=== PATIENT | female | born 1950 | race Caucasian/White ===

== ENCOUNTER → 2016-11-19 | Outpatient (CLI) | payer MEDICARE, OTHER ==
--- NOTE | 2016-11-20 07:28 | MM ---
Reason for exam: follow-up at short interval from prior study. Last mammogram was performed 1 year ago. History: Patient is postmenopausal, has history of breast cancer at age 61, history of other cancer, and is nulliparous. Family history of breast cancer in paternal cousin and breast cancer in paternal aunt. Radiation therapy of the left breast, 2011. Malignant left breast needle localization of the left breast, April 06, 2011. Malignant left breast needle localization of the left breast, April 06, 2011. Benign US left guided VAD of the left breast, March 15, 2011. Benign US left guided VAD of the left breast, September 06, 2010. Benign right mammotome panel of the right breast, April 10, 2006. 2 benign excisional biopsies of the left breast. Took hormonal contraceptives for 5 years beginning at age 20. Took estrogen for 3 years beginning at age 26. Taking tamoxifen for 3 months. Took antineoplastic for 5 years beginning at age 61. Physical Findings: Nurse did not find any significant physical abnormalities on exam. MG 3D Diag Mammo W/Cad JOSE LUIS Bilateral CC and MLO view(s) were taken. Prior study comparison: November 17, 2015, bilateral MG 3d diag mammo w/cad JOSE LUIS. November 15, 2014, bilateral MG diagnostic mammo w CAD JOSE LUIS. November 12, 2013, bilateral MG diagnostic mammo w CAD JOSE LUIS. There are scattered fibroglandular densities. Finding: Architectural distortion in the left breast consistent with known excisional biopsy. Previous mammotome biopsy in the right breast. There is no discrete abnormality. These results were verbally communicated with the patient and result sheet given to the patient on 11/19/16. ASSESSMENT: Benign, BI-RAD 2 RECOMMENDATION: Follow-up diagnostic mammogram of both breasts in 1 year.
== END | disposition home or self-care (01) ==
LOC: RADMAMWWP 15:18
PROVIDERS: ATTEND Radiology Diagnostic Radiology
DX: C50.912 Malignant neoplasm of unspecified site of left female breast (principal)
CPT/HCPCS: G0204; G0279

== ENCOUNTER → 2016-11-27 | Outpatient (CLI) | payer MEDICARE, OTHER ==
--- NOTE | 2016-11-27 12:10 | PN ---
I am seeing this patient in followup regarding her obstructive sleep apnea. She is a 66-year-old female patient diagnosed having severe TRISH with an AHI of 32 and currently she is on a CPAP pressure of 8 cm of water. Her CPAP pressure was dropped from 9 to 8 during her last evaluation in 2016. She is using a Soto FX small size nasal pillow. She is very compliant. She is still benefiting from the treatment. She has gained only 3 pounds since his last evaluation. Her current body weight is at 186 with a BMI of 30.4 and an Sherburne score of 7. She has no specific complaints. She is averaging more than 7 hours of sleep every night. She is waking up refreshed and alert. Her Sherburne score is at 7. No falling asleep during the day-to-day activities. She has turned off the humidity on her machine and she is using a chinstrap. She is also using Flonase for symptoms of sinus allergies and this needs to be also refilled. Otherwise, no other health issues since her last evaluation. BP is 140/70, pulse 70, respirations 16, temperature 98.0, sats are 97% on room air. Weight is 186, height is 65 inches. Sherburne score of 7 and BMI is 30.4. GENERAL APPEARANCE: Calm, comfortable. HEENT: Crowding of the posterior pharynx, Mallampati class 3 to 4. No goiter or neck masses. LUNGS: Clear to auscultation. HEART: Sounds are regular rate and rhythm. Normal S1, S2. No S3. No S4. No murmurs. ABDOMEN: Soft, nontender. No organomegaly. EXTREMITIES: No edema. No cyanosis or clubbing. IMPRESSION: 1. Symptomatic obstructive sleep apnea with an apnea-hypopnea index of 32, currently on CPAP with a pressure of 8. 2. Successful obstructive sleep apnea treatment and the patient is very compliant utilizing a Soto FX P10 nasal pillow with a chinstrap. 3. Obesity with a body mass index of 30.4. 4. History of breast cancer. 5. Hypertension. 6. Hyperlipidemia. PLAN: 1. Refill the patient's CPAP equipment and supplies, including the mask with a head gear and a chinstrap along with the appropriate filters and tubing. 2. Encourage weight loss. 3. Maintain good sleep hygiene measures. 4. See me back in a year's time in followup; earlier if needed. Her treatment is successful, no need for any CPAP pressure adjustments.
== END ==
LOC: SLEEP 10:42
PROVIDERS: ATTEND Internal Medicine Critical Care Medicine
DX: G47.33 Obstructive sleep apnea (adult) (pediatric) (principal); E66.9 Obesity, unspecified; I10 Essential (primary) hypertension; E78.5 Hyperlipidemia, unspecified; Z68.30 Body mass index [BMI] 30.0-30.9, adult

== ENCOUNTER → 2017-02-08 | Outpatient (CLI) | payer MEDICARE, OTHER ==
[2017-02-08 10:17] LABS: ALT 50 U/L (9-52); AST 32 U/L (14-36); Cholesterol 229 mg/dL (<200); Creatine Kinase 158 U/L (30-135); HDL Cholesterol 45 mg/dL (40-60)
== END | disposition home or self-care (01) ==
LOC: LABWHC1 09:26
PROVIDERS: ATTEND Internal Medicine Interventional Cardiology
DX: E78.2 Mixed hyperlipidemia (principal)
CPT/HCPCS: 36415; 80061; 82550; 84450; 84460

== ENCOUNTER 2017-03-29 08:28 | Day surgery (SDC) | payer MEDICARE, OTHER ==
[2017-03-26 16:36] VITALS: BMI 29.3
[~2017-03-29 08:28] MED LIST: LACTATED RINGERS 1,000 ML IV SCH
[2017-03-29 09:01] VITALS: RESP 16; TEMP 98.5
[2017-03-29] MEDS ORDERED: LIDOCAINE 1% 20 ML VIAL (10MG/ML) FOR IV START INTRADERMA ONE (09:08)
[2017-03-29] MEDS ORDERED: PROPOFOL 10 MG/ML 20 ML VIAL IV ONE (09:54)
[2017-03-29] MEDS ORDERED: ONDANSETRON 4 MG/2 ML VIAL ONE (09:54)
--- NOTE | 2017-03-29 10:23 | P.PCN ---
Date of Procedure: 03/29/17 Procedure(s) Performed: BRIEF HISTORY: Patient is a 67-year-old pleasant to 8 female, scheduled for an elective colonoscopy as a part of evaluation of prior history of colon polyps. PROCEDURE PERFORMED: Colonoscopy. PREOPERATIVE DIAGNOSIS: Colon polyps. IV sedation per Anesthesia. PROCEDURE: After informed consent was obtained, the patient, was brought into the endoscopy unit. IV sedation was administered by Anesthesia under continuous monitoring. Digital rectal examination was normal. Initially the Olympus CF- 160 flexible video colonoscope was then inserted in the rectum, gradually advanced into the sigmoid colon and further advancement was not possible because of acute angulation in this area. The scope was removed and a pediatric colonoscopy was then introduced into the rectum and gradually advanced into the cecum with [id number] difficulty. Careful examination was performed as the scope was gradually being withdrawn. Ileocecal valve and the appendiceal orifice were visualized and appeared normal. Prep was excellent. Mucosa of the cecum, ascending colon, transverse colon, descending colon, sigmoid colon, and rectum appeared normal. Moderate sigmoid diverticulosis seen. Retroflexion was performed in the rectum and small internal hemorrhoids were seen. The patient tolerated the procedure well. IMPRESSION: Normal-appearing colon from rectum to cecum with no evidence of colorectal neoplasia. Moderate left sided diverticulosis and small internal hemorrhoids RECOMMENDATIONS: Findings of this examination were discussed with the patient as well as a family. She was advised to have a repeat screening colonoscopy in 5 years because of the prior history of colon polyps.
[2017-03-29 10:47] VITALS: BP 128/69; PULSE 64
== END 2017-03-29 11:07 | disposition home or self-care (01) ==
LOC: ORWHC2ENDO 08:28
PROVIDERS: ATTEND Internal Medicine Gastroenterology
DX: Z12.11 Encounter for screening for malignant neoplasm of colon (principal); K57.30 Diverticulosis of large intestine without perforation or abscess without bleeding; Z86.010 Personal history of colon polyps; K64.8 Other hemorrhoids; I10 Essential (primary) hypertension; E78.5 Hyperlipidemia, unspecified; G47.33 Obstructive sleep apnea (adult) (pediatric); Z79.899 Other long term (current) drug therapy
CPT/HCPCS: J2405; J2704; G0105; 45378

== ENCOUNTER → 2017-11-18 | Outpatient (CLI) | payer MEDICARE, OTHER ==
--- NOTE | 2017-11-18 10:55 | MM ---
Reason for exam: additional evaluation requested from prior study. Last mammogram was performed 1 year ago. History: Patient is postmenopausal, has history of breast cancer at age 61, history of other cancer, and is nulliparous. Family history of breast cancer in paternal cousin and breast cancer in paternal aunt. Radiation therapy of the left breast, 2011. Malignant left breast needle localization of the left breast, April 06, 2011. Malignant left breast needle localization of the left breast, April 06, 2011. Benign US left guided VAD of the left breast, March 15, 2011. Benign US left guided VAD of the left breast, September 06, 2010. Benign right mammotome panel of the right breast, April 10, 2006. 2 benign excisional biopsies of the left breast. Took hormonal contraceptives for 5 years beginning at age 20. Took estrogen for 3 years beginning at age 26. Took tamoxifen for 3 months. Took antineoplastic for 5 years beginning at age 61. Physical Findings: Nurse did not find any significant physical abnormalities on exam. MG 3D Diag Mammo W/Cad JOSE LUIS Bilateral CC and MLO view(s) were taken. Prior study comparison: November 19, 2016, bilateral MG 3d diag mammo w/cad JOSE LUIS. November 17, 2015, bilateral MG 3d diag mammo w/cad JOSE LUIS. The breast tissue is heterogeneously dense. This may lower the sensitivity of mammography. No suspicious abnormality. Left post operative change. These results were verbally communicated with the patient and result sheet given to the patient on 11/18/17. ASSESSMENT: Benign, BI-RAD 2 RECOMMENDATION: Routine screening mammogram of both breasts in 1 year.
== END | disposition home or self-care (01) ==
LOC: RADMAMWWP 08:53
PROVIDERS: ATTEND Radiology Diagnostic Radiology
DX: C50.912 Malignant neoplasm of unspecified site of left female breast (principal)
CPT/HCPCS: 77066; G0279; 77062

== ENCOUNTER → 2017-12-10 | Outpatient (CLI) | payer MEDICARE, OTHER ==
--- NOTE | 2017-12-10 14:01 | PN ---
PROGRESS NOTE Michaela is coming in for an annual check regarding her severe TRISH with an AHI of 32. She is currently on a CPAP pressure of 8. She is utilizing her CPAP on average of 7 hours and 12 minutes per night and her CPAP use for more than 4 hours is 28/30. She is using a Soto FX small size nasal pillow. No complaints. No interval weight gain. No new onset comorbidities. No sinus congestion, pain or infection. No cough or sputum production. No shortness of breath. No daytime hypersomnia or sleepiness during the day. No other complaints otherwise for now. She is currently retired. She is golfing on a day-to-day basis. She is driving her car. She does not fall asleep while driving. Her [place] score is only at 5. REVIEW OF SYSTEMS: 12-point review of system was done. Positive findings are mentioned in history of present illness. Otherwise negative. Current vital signs: Blood pressure is 127/78, pulse 77, respirations 16, temperature 97.9, saturation 96% on room air. Weight is 189 height is 5 feet 5 inches, Ontario score is 5, BMI 31.3. GENERAL APPEARANCE: Calm, comfortable. Head is atraumatic, normocephalic. NECK: Supple. There is no JVD. No goiter or neck masses. Mallampati class III. LUNGS: Clear to auscultation. HEART: Sounds are regular rate and rhythm. Normal S1, S2. No S3. No murmurs. ABDOMEN: Soft, nontender. No organomegaly. EXTREMITIES: No edema. No cyanosis or clubbing. NEUROLOGIC: AOx3. There is no focal neurological deficits. PSYCHIATRIC: Adequate mood and affect. SKIN: Negative for any wounds or ulceration. IMPRESSION: 1. Severe obstructive sleep apnea with an AHI of 32, well treated with CPAP at a pressure of 8 cm of water. The patient remains compliant and she continues to see adequate clinical response. 2. Hypersomnia recovered. Current Ontario score is 5. 3. Obesity BMI of 31.3. 4. Breast cancer. 5. Hypertension. 6. Hyperlipidemia. PLAN: 1. Continue CPAP at the same level of pressure. 2. Renew the supplies. 3. Encourage weight loss. 4. See me back in a year's time or earlier if needed. MMODL / IJN: [id number] /
== END | disposition home or self-care (01) ==
LOC: SLEEP 09:30
PROVIDERS: ATTEND Internal Medicine Critical Care Medicine
DX: G47.33 Obstructive sleep apnea (adult) (pediatric) (principal); E66.9 Obesity, unspecified; C50.919 Malignant neoplasm of unspecified site of unspecified female breast; I10 Essential (primary) hypertension; E78.5 Hyperlipidemia, unspecified; Z99.89 Dependence on other enabling machines and devices; Z68.31 Body mass index [BMI] 31.0-31.9, adult

== ENCOUNTER → 2018-02-04 | Outpatient (CLI) | payer MEDICARE, OTHER ==
[2018-02-04 10:59] LABS: HCT 41.9 % (34.0-46.0); MCH 30.2 pg (25.0-35.0); MCV 97.5 fL (80.0-100.0); Mean Platelet Volume 6.6; Platelet Count 251 k/uL (150-450); RBC 4.29 m/uL (3.80-5.40); RDW 13.5 % (11.5-15.5); WBC 4.9 k/uL (3.8-10.6)
[2018-02-04 11:09] LABS: Appearance,Urine Clear (Clear); Bilirubin,Urine Negative (Negative); Blood,Urine Negative (Negative); Color,Urine Yellow; Glucose,Urine (UA) Negative (Negative); Ketones,Urine Negative (Negative); Leukocyte Esterase,Urine Negative (Negative); Nitrite,Urine Negative (Negative); Protein,Urine Trace (Negative); Specific Gravity,Urine 1.017 (1.001-1.035); Urobilinogen,Urine <2.0 mg/dL (<2.0)
[2018-02-04 11:14] LABS: Albumin 4.2 g/dL (3.5-5.0); Calcium 9.7 mg/dL (8.4-10.2); Potassium 4.4 mmol/L (3.5-5.1); Total Bilirubin 0.7 mg/dL (0.2-1.3)
== END | disposition home or self-care (01) ==
LOC: LABWHC1 10:16
PROVIDERS: ATTEND Internal Medicine Interventional Cardiology
DX: Z00.00 Encounter for general adult medical examination without abnormal findings (principal); E78.2 Mixed hyperlipidemia
CPT/HCPCS: 36415; 80053; 80061; 81003; 82550; 84443; 85027

== ENCOUNTER → 2018-07-30 | Outpatient (CLI) | payer MEDICARE, OTHER ==
[2018-07-30 10:27] LABS: HCT 39.7 % (34.0-46.0); HGB 13.3 gm/dL (11.4-16.0); MCH 32.6 pg (25.0-35.0); MCHC 33.6 g/dL (31.0-37.0); MCV 97.1 fL (80.0-100.0); Mean Platelet Volume 6.5; Platelet Count 217 k/uL (150-450); RBC 4.09 m/uL (3.80-5.40); RDW 13.4 % (11.5-15.5); WBC 4.8 k/uL (3.8-10.6)
[2018-07-30 16:02] LABS: Albumin 4.5 g/dL (3.80-4.90); Albumin/Globulin Ratio 2.14 (1.60-3.17); Anion Gap 6.6 mmol/L (4.00-12.00); Calcium 9.7 mg/dL (8.7-10.3); Carbon Dioxide 32.4 mmol/L (21.6-31.8); Globulin 2.1 g/dL (1.6-3.3); LDL Cholesterol,Calculated 89.8 mg/dL (0.0-131.0); Total Bilirubin 0.6 mg/dL (0.2-1.2); Total Protein 6.6 g/dL (6.2-8.2); VLDL Calculation 14.2 mg/dL (5.00-40.00)
== END | disposition home or self-care (01) ==
LOC: LABWHC1 09:34
PROVIDERS: ATTEND Internal Medicine Interventional Cardiology
DX: C50.919 Malignant neoplasm of unspecified site of unspecified female breast (principal); I10 Essential (primary) hypertension; E78.2 Mixed hyperlipidemia
CPT/HCPCS: 36415; 80053; 80061; 85027

== ENCOUNTER → 2018-09-01 | Outpatient (CLI) | payer MEDICARE, OTHER ==
--- NOTE | 2018-09-01 12:20 | US ---
EXAMINATION TYPE: US thyroid st tissue head/neck DATE OF EXAM: 09/01/2018 COMPARISON: NONE CLINICAL HISTORY: 68-year-old female Thyroid nodule E04.1. Patient states having a history of breast cancer. Patient states doctor felt nodule. No thyroid medications. TECHNIQUE: Multiple sonographic images of the thyroid gland are obtained. FINDINGS: GLAND SIZE: Right Lobe: 5.8 x 3.3 x 2.6 cm Overall Parenchyma: heterogenous Left Lobe: 5.9 x 3.1 x 2.4 cm Overall Parenchyma: heterogeneous Isthmus Thickness: 1.0 cm NODULES RIGHT: # of nodules measured on right: 3 1. 1.6 X 1.3 x 1.4 cm isoechoic nodule at the Upper mid pole with poorly defined margins. This nod ule is wider than tall and shows intranodular vascularity. Prior size: no previous 2. 0.5 X 0.5 x 0.4 cm Anechoic probable colloid cyst at the lower mid pole with well-defined margins . Prior size: no previous 3. 0.8 X 0.7 x 0.8 cm isoechoic nodule at the upper lateral pole with poorly defined margins. This nodule is taller than wide and shows no intranodular vascularity. Prior size: No previous LEFT: # of nodules measured on left: 1 1. 1.2 X 1.0 x 0.6 cm hypoechoic nodule at the mid medial pole with well-defined margins. This nod ule is wider than tall and shows intranodular vascularity. Prior size: No previous ISTHMUS: # of nodules measured in the isthmus: 1 1. 1.3 X 0.6 x 1.1 cm isoechoic nodule at the right lower pole with well-defined margins. This nod ule is taller than wide and shows intranodular vascularity. Prior size: No previous Bilateral neck scanned, no evidence of lymphadenopathy. Bilateral enlarged thyroid lobes. IMPRESSION: 1. Thyromegaly with multiple nodules. Correlate for multinodular goiter. 2. 1.6 cm solid nodule on the right, 1.2 cm solid nodule on the left, and a 1.3 cm solid nodule in th e isthmus. The decision to biopsy should be made on a clinical basis.
== END | disposition home or self-care (01) ==
LOC: RADUSWWP 10:51
PROVIDERS: ATTEND Internal Medicine
DX: E04.2 Nontoxic multinodular goiter (principal)
CPT/HCPCS: 76536

== ENCOUNTER → 2018-11-21 | Outpatient (CLI) | payer MEDICARE, OTHER ==
--- NOTE | 2018-11-24 08:54 | MM ---
Reason for exam: screening (asymptomatic). Last mammogram was performed 1 year ago. History: Patient is postmenopausal, has history of breast cancer at age 61, history of other cancer, and is nulliparous. Family history of breast cancer in paternal cousin and breast cancer in paternal aunt. Radiation therapy of the left breast, 2011. Malignant left breast needle localization of the left breast, April 06, 2011. Malignant left breast needle localization of the left breast, April 06, 2011. Benign US left guided VAD of the left breast, March 15, 2011. Benign US left guided VAD of the left breast, September 06, 2010. Benign right mammotome panel of the right breast, April 10, 2006. 2 benign excisional biopsies of the left breast. Took hormonal contraceptives for 5 years beginning at age 20. Took estrogen for 3 years beginning at age 26. Took tamoxifen for 3 months. Took antineoplastic for 5 years beginning at age 61. Physical Findings: A clinical breast exam by your physician is recommended on an annual basis and results should be correlated with mammographic findings. MG 3D Screening Mammo W/Cad Bilateral CC and MLO view(s) were taken. Prior study comparison: November 18, 2017, bilateral MG 3d diag mammo w/cad JOSE LUIS. November 19, 2016, bilateral MG 3d diag mammo w/cad JOSE LUIS. The breast tissue is heterogeneously dense. This may lower the sensitivity of mammography. Right biopsy marker noted. Post therapy change on the left. ASSESSMENT: Benign, BI-RAD 2 RECOMMENDATION: Routine screening mammogram of both breasts in 1 year.
== END | disposition home or self-care (01) ==
LOC: RADMAMWWP 09:40
PROVIDERS: ATTEND Radiology Diagnostic Radiology
DX: Z12.31 Encounter for screening mammogram for malignant neoplasm of breast (principal); Z85.3 Personal history of malignant neoplasm of breast
CPT/HCPCS: 77063; 77067

== ENCOUNTER → 2018-11-25 | Outpatient (CLI) | payer MEDICARE, OTHER ==
--- NOTE | 2018-11-25 17:05 | PN ---
PROGRESS NOTE Michaela is 68 with obstructive sleep apnea. She is coming in for a compliancy followup and check. This is her annual check. She has an AHI of 32 with an established case of obstructive sleep apnea back in 2011. She is currently on CPAP pressure of 8. She is using AirFit P10 nose pillows. She is doing extremely well and remains extremely compliant. Nevertheless, her machine has not been functioning properly, and plugging the machine into power will give off pineda. This has become obviously an ongoing issue and even a hazard. For that reason, I suggested that the patient be moved to a newer- generation ResMed unit to continue her ongoing CPAP therapy. She has occasional nasal congestion and sinus drainage. No cough. No sputum production. No chest tightness. No wheezing. No recent weight gain. The patient has managed to lose a few pounds, on the order of 10 pounds, over the past one year. No falling asleep while driving. Jackhorn score is only 3. REVIEW OF SYSTEMS: Fourteen-point review of systems was done. Positive findings are all mentioned above in the history of present illness. No new-onset medical problems or comorbidities. PHYSICAL EXAMINATION: VITAL SIGNS: BP is 128/69, pulse 62, respirations 14, temperature 98.0. Weight is 181. Height is 5 feet 5 inches. Jackhorn score is 7. BMI is 29.6, saturation 97% on room air. GENERAL APPEARANCE: Calm, comfortable. No acute distress. HEAD: Atraumatic, normocephalic. NECK: Supple. There is no JVD. No goiter or neck masses. Mallampati class IV. LUNGS: Clear to auscultation. HEART: Heart sounds are regular rate and rhythm. Normal S1, S2. No S3, S4. No murmurs. ABDOMEN: Soft, nontender. No organomegaly. EXTREMITIES: No edema. No cyanosis or clubbing. SKIN: Negative for any wounds or ulceration. IMPRESSION: 1. Symptomatic obstructive sleep apnea with an apnea/hypopnea index of 32. 2. Malfunctioning CPAP unit. 3. Hypersomnia. 4. Obesity with a body mass index of 29.6, improved; the patient lost approximately 10 pounds. 5. History of breast cancer. 6. Hypertension. 7. Hyperlipidemia. PLAN: Proceed with CPAP therapy at a pressure of 8 cm of water. We will upgrade this patient's CPAP unit; I am going to give her a newer-generation ResMed unit which should be set at a pressure of 8 cm of water. Will give the patient a DreamWear under-the- nose medium-sized nose mask. The patient will see me back in 30 to 90 days for reevaluation regarding her obstructive sleep apnea and treatment and her compliancy on her new machine. Will continue to follow. MMODL / IJN: [id number] /
== END | disposition home or self-care (01) ==
LOC: SLEEP 15:04
PROVIDERS: ATTEND Internal Medicine Critical Care Medicine
DX: G47.33 Obstructive sleep apnea (adult) (pediatric) (principal); R09.81 Nasal congestion; E66.9 Obesity, unspecified; I10 Essential (primary) hypertension; E78.5 Hyperlipidemia, unspecified; Z99.89 Dependence on other enabling machines and devices; Z68.29 Body mass index [BMI] 29.0-29.9, adult; Z85.3 Personal history of malignant neoplasm of breast

== ENCOUNTER → 2019-02-24 | Outpatient (CLI) | payer MEDICARE, OTHER ==
--- NOTE | 2019-02-24 20:01 | PN ---
PROGRESS NOTE Michaela is 68, coming in for a compliancy check regarding her new CPAP machine. The patient has severe TRISH with an AHI of 32, currently on a CPAP pressure of 8. She is very compliant. She is using her machine every night. She is benefitting from the treatment, averaging about 8 hours of CPAP use per night. CPAP use for more than 4 hours is above 95%. AHI is down to 1.3. No recent weight gain. REVIEW OF SYSTEMS: Fourteen-point review of systems was done. Positive findings were all mentioned above in the history of present illness. PHYSICAL EXAMINATION: VITAL SIGNS: BP is 109/64, pulse 68, respirations 16. Weight is 178. Temperature 97.4. GENERAL APPEARANCE: Calm, comfortable. HEAD: Atraumatic, normocephalic. Mallampati class IV. LUNGS: Clear to auscultation. HEART: Heart sounds are regular rate and rhythm. Normal S1, S2. No S3, S4. No murmurs. ABDOMEN: Soft, nontender. No organomegaly. EXTREMITIES: No edema. No cyanosis or clubbing. NEUROLOGIC: Alert and oriented x3. No focal neurological deficits. PSYCHIATRIC: Negative for anxiety or depression. IMPRESSION: Obstructive sleep apnea, severe, with apnea/hypopnea index of 32, currently on CPAP pressure of 8 with excellent clinical response and compliance. PLAN: 1. Continue DreamWear [id number] medium-sized mask. 2. Encourage weight loss. 3. Treatment is successful. The patient is compliant. Will continue the treatment. See me back in a year's time in followup, earlier if needed. MMODL / IJN: [id number] /
== END | disposition home or self-care (01) ==
LOC: SLEEP 15:45
PROVIDERS: ATTEND Internal Medicine Critical Care Medicine
DX: G47.33 Obstructive sleep apnea (adult) (pediatric) (principal); Z99.89 Dependence on other enabling machines and devices

== ENCOUNTER → 2019-06-30 | Outpatient (CLI) | payer MEDICARE, OTHER ==
[2019-06-30 10:17] LABS: HCT 39.5 % (34.0-46.0); HGB 12.8 gm/dL (11.4-16.0); MCH 31.5 pg (25.0-35.0); MCHC 32.4 g/dL (31.0-37.0); Mean Platelet Volume 6.9; Platelet Count 211 k/uL (150-450); RBC 4.07 m/uL (3.80-5.40); RDW 12.9 % (11.5-15.5); WBC 4.9 k/uL (3.8-10.6)
[2019-06-30 10:49] LABS: Appearance,Urine Clear (Clear); Bilirubin,Urine Negative (Negative); Blood,Urine Negative (Negative); Color,Urine Yellow; Glucose,Urine (UA) Negative (Negative); Ketones,Urine Negative (Negative); Leukocyte Esterase,Urine Negative (Negative); Nitrite,Urine Negative (Negative); Protein,Urine Negative (Negative); Urobilinogen,Urine <2.0 mg/dL (<2.0)
[2019-06-30 15:52] LABS: African American GFR (CKD) 59.3 (60.0-200.0); Albumin 4.5 g/dL (3.80-4.90); Albumin/Globulin Ratio 2.37 (1.60-3.17); Anion Gap 6.1 mmol/L (4.00-12.00); BUN/Creat Ratio 18.18 Ratio (12.00-20.00); Calcium 9.4 mg/dL (8.7-10.3); Carbon Dioxide 29.9 mmol/L (21.6-31.8); Chol/HDL Ratio 3.17; Globulin 1.9 g/dL (1.6-3.3); LDL Cholesterol,Calculated 83.8 mg/dL (0.0-131.0); Non-African American GFR(CKD) 51.2 (60.0-200.0); Total Bilirubin 0.6 mg/dL (0.3-1.2); Total Protein 6.4 g/dL (6.2-8.2); VLDL Calculation 18.2 mg/dL (5.00-40.00)
== END | disposition home or self-care (01) ==
LOC: LABWHC1 09:51
PROVIDERS: ATTEND Nurse Practitioner Adult Health
DX: E78.2 Mixed hyperlipidemia (principal); E03.9 Hypothyroidism, unspecified; I10 Essential (primary) hypertension
CPT/HCPCS: 36415; 80053; 80061; 81003; 84443; 85027

== ENCOUNTER → 2020-01-07 | Outpatient (CLI) | payer MEDICARE, OTHER ==
[2020-01-07 09:43] LABS: HCT 38.5 % (34.0-46.0); HGB 12.9 gm/dL (11.4-16.0); MCH 32.9 pg (25.0-35.0); MCHC 33.5 g/dL (31.0-37.0); MCV 98.2 fL (80.0-100.0); Platelet Count 248 k/uL (150-450); RBC 3.92 m/uL (3.80-5.40); RDW 12.9 % (11.5-15.5); WBC 4.9 k/uL (3.8-10.6)
[2020-01-07 10:38] LABS: Appearance,Urine Clear (Clear); Bilirubin,Urine Negative (Negative); Blood,Urine Trace (Negative); Color,Urine Yellow; Glucose,Urine (UA) Negative (Negative); Ketones,Urine Negative (Negative); Leukocyte Esterase,Urine Negative (Negative); Mucus,Urine Rare /hpf; Nitrite,Urine Negative (Negative); PH, Urine 6.5 (5.0-8.0); Protein,Urine Negative (Negative); RBC,Urine 4 /hpf (0-5); Specific Gravity,Urine 1.019 (1.001-1.035); Squamous Epithelial Cell,Urine 2 /hpf (0-4); Urobilinogen,Urine <2.0 mg/dL (<2.0); WBC,Urine 1 /hpf (0-5)
[2020-01-07 17:06] LABS: African American GFR (CKD) 59.3 (60.0-200.0); Albumin 4.4 g/dL (3.80-4.90); Anion Gap 5.1 mmol/L (4.00-12.00); BUN/Creat Ratio 18.18 Ratio (12.00-20.00); Calcium 9.9 mg/dL (8.7-10.3); Carbon Dioxide 31.9 mmol/L (21.6-31.8); Chol/HDL Ratio 3.86; Globulin 2.2 g/dL (1.6-3.3); Non-African American GFR(CKD) 51.2 (60.0-200.0); Potassium 4.3 mmol/L (3.5-5.5); Total Bilirubin 0.7 mg/dL (0.3-1.2); Total Protein 6.6 g/dL (6.2-8.2)
[2020-01-07 20:32] LABS: Hemoglobin A1C 6.1 % (4.0-6.0)
== END | disposition home or self-care (01) ==
LOC: LABWHC1 08:34
PROVIDERS: ATTEND Obstetrics & Gynecology
DX: E78.2 Mixed hyperlipidemia (principal); I10 Essential (primary) hypertension; E03.9 Hypothyroidism, unspecified
CPT/HCPCS: 36415; 80053; 80061; 81001; 83036; 84443; 85027

== ENCOUNTER → 2020-01-14 | Outpatient (CLI) | payer MEDICARE, OTHER ==
--- NOTE | 2020-01-15 10:08 | MM ---
Reason for exam: additional evaluation requested from prior study. Last mammogram was performed 1 year and 2 months ago. History: Patient is postmenopausal, has history of breast cancer at age 61, history of other cancer, and is nulliparous. Family history of breast cancer in paternal cousin and breast cancer in paternal aunt. Radiation therapy of the left breast, 2011. Malignant left breast needle localization of the left breast, April 06, 2011. Malignant left breast needle localization of the left breast, April 06, 2011. Benign US left guided VAD of the left breast, March 15, 2011. Benign US left guided VAD of the left breast, September 06, 2010. Benign right mammotome panel of the right breast, April 10, 2006. 2 benign excisional biopsies of the left breast. Took hormonal contraceptives for 5 years beginning at age 20. Took estrogen for 3 years beginning at age 26. Took tamoxifen for 3 months. Took antineoplastic for 5 years beginning at age 61. Physical Findings: Nurse did not find any significant physical abnormalities on exam. MG 3D Diag Mammo W/Cad JOSE LUIS Bilateral CC and MLO view(s) were taken. Prior study comparison: November 21, 2018, bilateral MG 3d screening mammo w/cad. November 18, 2017, bilateral MG 3d diag mammo w/cad JOSE LUIS. There are scattered fibroglandular densities. No significant new findings when compared with previous films. These results were verbally communicated with the patient and result sheet given to the patient on 01/14/20. ASSESSMENT: Benign, BI-RAD 2 RECOMMENDATION: Follow-up diagnostic mammogram of both breasts in 1 year.
== END | disposition home or self-care (01) ==
LOC: RADMAMWWP 14:20
PROVIDERS: ATTEND Radiology Diagnostic Radiology
DX: R92.8 Other abnormal and inconclusive findings on diagnostic imaging of breast (principal)
CPT/HCPCS: 77066; G0279; 77062

== ENCOUNTER → 2020-03-15 | Outpatient (CLI) | payer MEDICARE, OTHER ==
[2020-03-15 11:09] LABS: Appearance,Urine Clear (Clear); Bilirubin,Urine Negative (Negative); Blood,Urine Trace (Negative); Color,Urine Yellow; Glucose,Urine (UA) Negative (Negative); Ketones,Urine Negative (Negative); Leukocyte Esterase,Urine Negative (Negative); Nitrite,Urine Negative (Negative); Protein,Urine Negative (Negative); RBC,Urine 1 /hpf (0-5); Specific Gravity,Urine 1.011 (1.001-1.035); Urobilinogen,Urine <2.0 mg/dL (<2.0); WBC,Urine 1 /hpf (0-5)
[2020-03-15 21:25] LABS: African American GFR (CKD) 59.3 (60.0-200.0); Albumin 4.5 g/dL (3.80-4.90); Albumin/Globulin Ratio 2.65 (1.60-3.17); Anion Gap 9.2 mmol/L (4.00-12.00); BUN/Creat Ratio 18.18 Ratio (12.00-20.00); Calcium 9.4 mg/dL (8.7-10.3); Carbon Dioxide 27.8 mmol/L (21.6-31.8); Globulin 1.7 g/dL (1.6-3.3); Non-African American GFR(CKD) 51.2 (60.0-200.0); Potassium 4.2 mmol/L (3.5-5.5); Total Bilirubin 0.6 mg/dL (0.2-1.2); Total Protein 6.2 g/dL (6.2-8.2)
[2020-03-15 21:41] LABS: Hemoglobin A1C 6.1 % (4.0-6.0)
== END | disposition home or self-care (01) ==
LOC: LABWHC1 09:42
PROVIDERS: ATTEND Internal Medicine
DX: N18.9 Chronic kidney disease, unspecified (principal); R31.9 Hematuria, unspecified; R73.03 Prediabetes
CPT/HCPCS: 36415; 80053; 81001; 83036

== ENCOUNTER → 2020-03-22 | Outpatient (CLI) | payer MEDICARE, OTHER ==
--- NOTE | 2020-03-22 15:09 | US ---
EXAMINATION TYPE: US thyroid st tissue head/neck DATE OF EXAM: 03/22/2020 COMPARISON: Thyroid US 09/01/2018. 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 GLAND SIZE: Right Lobe: 5.8 x 3.2 x 2.9 cm Overall Parenchyma: heterogenous Left Lobe: 6.6 x 2.4 x 2.5 cm Overall Parenchyma: heterogeneous Isthmus Thickness: 0.8 cm NODULES RIGHT: # of nodules measured on right: 3 1. 1.3 X 1.0 x 1.3 cm isoechoic nodule at the Upper mid pole with poorly defined margins. This nodul e is wider than tall and shows intranodular vascularity. Prior size: no previous 2. 0.5 X 0.5 x 0.6 cm Anechoic probable cyst at the lower mid pole with well-defined margins , Prior size:0.5x 0.5 0.4cm 3. 0.8 X 0.7 x 0.8 cm isoechoic nodule at the upper lateral pole with poorly defined margins. This n odule is taller than wide and shows no intranodular vascularity. Prior size: 0.8 X 0.7 x 0.8 LEFT: # of nodules measured on left: 1 1. 1.2 X 1.0 x 0.6 cm hypoechoic nodule at the mid medial pole with well- defined margins. This nodu le is wider than tall and shows intranodular vascularity. Prior size: No previous ISTHMUS: # of nodules measured in the isthmus: 1 1. 1.6 X 1.0 x 1.6 cm isoechoic nodule at the right lower pole with well- defined margins. This nodu le is taller than wide and shows intranodular vascularity. Prior size: 1.3 X 0.6 x 1.1 cm Bilateral neck scanned, no evidence of lymphadenopathy. Bilateral enlarged thyroid lobes. Markedly heterogeneous enlarged thyroid gland redemonstrated. Some nodules on current study not clear ly seen or marked than prior study. No suspicious nodules to warrant sampling. IMPRESSION: Findings consistent with multinodular goiter as detailed above.
== END | disposition home or self-care (01) ==
LOC: RADUSWWP 14:10
PROVIDERS: ATTEND Internal Medicine
DX: E04.2 Nontoxic multinodular goiter (principal)
CPT/HCPCS: 76536

== ENCOUNTER → 2020-04-21 | Outpatient (CLI) | payer MEDICARE, OTHER ==
--- NOTE | 2020-04-21 15:20 | US ---
EXAMINATION TYPE: US kidneys/renal and bladder DATE OF EXAM: 04/21/2020 COMPARISON: NONE CLINICAL HISTORY: R31.9 Hematuria. microscopic hematuria EXAM MEASUREMENTS: Right Kidney: 10.3 x 4.1 x 4.1 cm Left Kidney: 10.0 x 4.4 x 3.7 cm Right Kidney: fullness to renal pelvis Left Kidney: no evidence of hydronephrosis Bladder: appears wnl Bilateral Jets seen: no *Incidental finding: heterogeneous uterus with calcified area near fundus = 4.1 x 3.4cm Cortical medullary differentiation is maintained bilaterally. IMPRESSION: Probable extrarenal pelvis on the right. Probable calcified fibroid.
== END | disposition home or self-care (01) ==
LOC: RADUSWWP 14:45
PROVIDERS: ATTEND Urology
DX: R31.9 Hematuria, unspecified (principal)
CPT/HCPCS: 76770

== ENCOUNTER → 2020-06-22 | Outpatient (CLI) | payer MEDICARE, OTHER ==
[2020-06-22 16:43] LABS: Albumin 4.8 g/dL (3.80-4.90); Albumin/Globulin Ratio 2.53 (1.60-3.17); Anion Gap 8.2 mmol/L (4.00-12.00); BUN/Creat Ratio 18.33 Ratio (12.00-20.00); Calcium 9.9 mg/dL (8.7-10.3); Carbon Dioxide 29.8 mmol/L (21.6-31.8); Chol/HDL Ratio 3.17; Globulin 1.9 g/dL (1.6-3.3); Non-African American GFR(CKD) 45.8 (60.0-200.0); Potassium 3.9 mmol/L (3.5-5.5); Total Bilirubin 0.7 mg/dL (0.3-1.2); Total Protein 6.7 g/dL (6.2-8.2)
[2020-06-22 16:51] LABS: T4, Free (Free Thyroxine) 1.1 ng/dL (0.80-1.80)
[2020-06-22 17:49] LABS: Hemoglobin A1C 5.8 % (4.0-6.0)
== END | disposition home or self-care (01) ==
LOC: LABWHC1 08:04
PROVIDERS: ATTEND Internal Medicine Interventional Cardiology
DX: E04.2 Nontoxic multinodular goiter (principal); E78.2 Mixed hyperlipidemia; R73.03 Prediabetes
CPT/HCPCS: 36415; 80053; 80061; 83036; 84439; 84443

== ENCOUNTER → 2020-07-14 | Outpatient (CLI) | payer MEDICARE, OTHER ==
[2020-07-14 07:59] LABS: HCT 37.6 % (34.0-46.0); HGB 12.9 gm/dL (11.4-16.0); MCH 32.7 pg (25.0-35.0); MCHC 34.2 g/dL (31.0-37.0); MCV 95.7 fL (80.0-100.0); Mean Platelet Volume 6.7; Platelet Count 222 k/uL (150-450); RBC 3.93 m/uL (3.80-5.40); WBC 5.3 k/uL (3.8-10.6)
[2020-07-14 11:06] LABS: African American GFR (CKD) 58.9 (60.0-200.0); Albumin 4.8 g/dL (3.80-4.90); Anion Gap 5.7 mmol/L (4.00-12.00); Calcium 10.1 mg/dL (8.7-10.3); Carbon Dioxide 32.3 mmol/L (21.6-31.8); Non-African American GFR(CKD) 50.8 (60.0-200.0); Phosphorus 3.6 mg/dL (2.4-5.1); Potassium 3.9 mmol/L (3.5-5.5); Uric Acid 5.7 mg/dL (2.9-7.7)
== END | disposition home or self-care (01) ==
LOC: LABWHC1 07:06
PROVIDERS: ATTEND Internal Medicine Nephrology
DX: I12.9 Hypertensive chronic kidney disease with stage 1 through stage 4 chronic kidney disease, or unspecified chronic kidney disease (principal)
CPT/HCPCS: 36415; 80069; 82550; 84550; 85027

== ENCOUNTER → 2020-08-17 | Outpatient (CLI) | payer MEDICARE, OTHER ==
[2020-08-17 19:42] LABS: HCT 37.7 % (37.2-46.3); HGB 12.1 g/dL (12.0-15.0); MCH 31.6 pg (27.0-32.0); MCHC 32.1 g/dL (32.0-37.0); MCV 98.4 fL (80.0-97.0); Platelet Count 216 X 10*3/uL (140-440); RBC 3.83 X 10*6/uL (4.10-5.20); RDW 13.6 % (11.5-14.5)
[2020-08-18 02:59] LABS: African American GFR (CKD) 66.1 (60.0-200.0); Calcium 9.9 mg/dL (8.7-10.3); Chloride 108 mmol/L (96-109); Creatine Kinase 78 U/L (26-186); Glucose 87 mg/dL (70-110); Potassium 4.1 mmol/L (3.5-5.5); Rheumatoid Factor, Qnt <4 IU/mL (0-13); Sodium 144 mmol/L (135-145)
== END | disposition home or self-care (01) ==
LOC: LABWHC1 10:50
PROVIDERS: ATTEND Internal Medicine Nephrology
DX: I12.9 Hypertensive chronic kidney disease with stage 1 through stage 4 chronic kidney disease, or unspecified chronic kidney disease (principal); N18.9 Chronic kidney disease, unspecified
CPT/HCPCS: 36415; 80069; 82550; 85027; 86431

== ENCOUNTER → 2020-11-24 | Outpatient (CLI) | payer MEDICARE, OTHER ==
[2020-11-24 11:39] LABS: HCT 36.7 % (37.2-46.3); HGB 11.7 g/dL (12.0-15.0); MCH 31.5 pg (27.0-32.0); MCHC 31.9 g/dL (32.0-37.0); MCV 98.7 fL (80.0-97.0); Mean Platelet Volume 9.6 fL (9.5-12.2); Platelet Count 219 X 10*3/uL (140-440); RBC 3.72 X 10*6/uL (4.10-5.20); RDW 13.6 % (11.5-14.5); WBC 4.88 X 10*3/uL (4.50-10.00)
[2020-11-24 14:31] LABS: African American GFR (CKD) 58.9 (60.0-200.0); Albumin 4.4 g/dL (3.80-4.90); Albumin/Globulin Ratio 1.91 (1.60-3.17); Anion Gap 5.9 mmol/L (4.00-12.00); BUN/Creat Ratio 19.09 Ratio (12.00-20.00); Calcium 9.6 mg/dL (8.7-10.3); Carbon Dioxide 29.1 mmol/L (21.6-31.8); Chol/HDL Ratio 3.21; Globulin 2.3 g/dL (1.6-3.3); LDL Cholesterol,Calculated 82.4 mg/dL (0.0-131.0); Non-African American GFR(CKD) 50.8 (60.0-200.0); Potassium 4.1 mmol/L (3.5-5.5); Total Bilirubin 0.5 mg/dL (0.3-1.2); Total Protein 6.7 g/dL (6.2-8.2); VLDL Calculation 12.6 mg/dL (5.00-40.00)
[2020-11-24 16:25] LABS: Hemoglobin A1C 5.7 % (4.0-6.0); Urine Creatinine 66.6 mg/dL
== END | disposition home or self-care (01) ==
LOC: LABWHC1 07:15
PROVIDERS: ATTEND Internal Medicine Nephrology
DX: E78.2 Mixed hyperlipidemia (principal); R73.01 Impaired fasting glucose; R69 Illness, unspecified
CPT/HCPCS: 36415; 80053; 80061; 82043; 82570; 83036; 85027

== ENCOUNTER → 2021-01-16 | Outpatient (CLI) | payer MEDICARE, OTHER ==
--- NOTE | 2021-01-16 11:20 | MM ---
Reason for exam: additional evaluation requested from prior study. Last mammogram was performed 1 year ago. History: Patient is postmenopausal, has history of breast cancer at age 61, history of other cancer, and is nulliparous. Family history of breast cancer in paternal cousin and breast cancer in paternal aunt. Radiation therapy of the left breast, 2011. Malignant left breast needle localization of the left breast, April 06, 2011. Malignant left breast needle localization of the left breast, April 06, 2011. Benign US left guided VAD of the left breast, March 15, 2011. Benign US left guided VAD of the left breast, September 06, 2010. Benign right mammotome panel of the right breast, April 10, 2006. 2 benign excisional biopsies of the left breast. Took hormonal contraceptives for 5 years beginning at age 20. Took estrogen for 3 years beginning at age 26. Took tamoxifen for 3 months. Took antineoplastic for 5 years beginning at age 61. Physical Findings: Nurse did not find any significant physical abnormalities on exam. MG 3D Diag Mammo W/Cad JOSE LUIS Bilateral CC and MLO view(s) were taken. Prior study comparison: January 14, 2020, bilateral MG 3d diag mammo w/cad JOSE LUIS. December 09, 2018, left breast US breast limited LT. November 21, 2018, bilateral MG 3d screening mammo w/cad. November 18, 2017, bilateral MG 3d diag mammo w/cad JOSE LUIS. November 19, 2016, bilateral MG 3d diag mammo w/cad JOSE LUIS. The breast tissue is heterogeneously dense. This may lower the sensitivity of mammography. Stable post surgical and post therapy change left breast with fat necrosis calcifications. No significant new findings when compared with previous films. These results were verbally communicated with the patient and result sheet given to the patient on 01/16/21. ASSESSMENT: Benign, BI-RAD 2 RECOMMENDATION: Follow-up diagnostic mammogram of both breasts in 1 year.
== END | disposition home or self-care (01) ==
LOC: RADMAMWWP 10:15
PROVIDERS: ATTEND Radiology Diagnostic Radiology
DX: R92.2 Inconclusive mammogram (principal); Z78.0 Asymptomatic menopausal state; Z85.3 Personal history of malignant neoplasm of breast; Z80.3 Family history of malignant neoplasm of breast
CPT/HCPCS: 77066; G0279; 77062

== ENCOUNTER → 2021-03-10 | Outpatient (CLI) | payer MEDICARE, OTHER ==
[2021-03-10 15:16] LABS: HCT 39.1 % (37.2-46.3); HGB 12.4 g/dL (12.0-15.0); MCH 31.3 pg (27.0-32.0); MCHC 31.7 g/dL (32.0-37.0); MCV 98.7 fL (80.0-97.0); Mean Platelet Volume 9.9 fL (9.5-12.2); Platelet Count 209 X 10*3/uL (140-440); RBC 3.96 X 10*6/uL (4.10-5.20); RDW 13.9 % (11.5-14.5); WBC 5.25 X 10*3/uL (4.50-10.00)
[2021-03-10 19:37] LABS: % Iron Saturation 25.45 (12.00-45.00); African American GFR (CKD) 58.9 (60.0-200.0); Albumin 4.7 g/dL (3.80-4.90); Anion Gap 6.8 mmol/L (4.00-12.00); BUN/Creat Ratio 16.36 Ratio (12.00-20.00); Carbon Dioxide 29.2 mmol/L (21.6-31.8); Non-African American GFR(CKD) 50.8 (60.0-200.0); Phosphorus 3.8 mg/dL (2.4-5.1); Potassium 4.4 mmol/L (3.5-5.5)
== END | disposition home or self-care (01) ==
LOC: LABWHC1 10:09
PROVIDERS: ATTEND Internal Medicine Endocrinology, Diabetes & Metabolism
DX: I12.9 Hypertensive chronic kidney disease with stage 1 through stage 4 chronic kidney disease, or unspecified chronic kidney disease (principal); N18.30 Chronic kidney disease, stage 3 unspecified; E04.2 Nontoxic multinodular goiter
CPT/HCPCS: 36415; 80069; 82728; 83540; 83550; 84439; 84443; 85027

== ENCOUNTER → 2021-04-07 | Outpatient (CLI) | payer MEDICARE, OTHER ==
--- NOTE | 2021-04-07 13:35 | BD ---
EXAMINATION TYPE: Axial Bone Density DATE OF EXAM: 04/07/2021 COMPARISON: 08/11/2013 CLINICAL HISTORY: Height: 65.0 IN Weight: 159 LBS FRAX RISK QUESTIONS: History of Fracture in Adulthood: LT ANKLE FX AGE 55 RISK FACTORS HISTORY OF: Family History of Osteoporosis: YES MOTHER Active: YES Diet low in dairy products/other sources of calcium: YES Postmenopausal woman: AGE 50 Take estrogen and/or progesterone medications: NOT NOW How long: CONTROL 5 YEARS; CLOMID 1 YEAR MEDICATIONS: Additional Medications: CALCIUM, VIT D, IRBESARTAN, ZETIA, CHOLESTEROL MEDS Additional History: BREAST CANCER WITH RADIATION EXAM MEASUREMENTS: Bone mineral densitometry was performed using the [employer]. Bone mineral density as measured about the Lumbar spine is: ----- L1-L4(G/cm2): 1.168 T Score Values are as follows: ----- L2: -0.9 ----- L3: -0.8 ----- L4: 2.2 ----- L1-L4: -0.1 Bone mineral density has: Decreased -5.8% since study of: 08/11/2013 Bone mineral density about the R hip (g/cm2): 0.882 Bone mineral density about the L hip (g/cm2): 0.895 T Score values are as follows: -----R Neck: -1.1 -----L Neck: -1.0 -----R Total: -0.5 -----L Total: -0.8 Bone mineral density has: Decreased -8.9% since study of: 08/11/2013 IMPRESSION: no evidence for osteoporosis or osteopenia NOTE: T-SCORE=SD OF THE YOUNG ADULT MEAN.
== END | disposition home or self-care (01) ==
LOC: RADBDWWP 08:26
PROVIDERS: ATTEND Internal Medicine
DX: M85.89 Other specified disorders of bone density and structure, multiple sites (principal)
CPT/HCPCS: 77080

== ENCOUNTER → 2021-04-10 | Outpatient (CLI) | payer MEDICARE, OTHER ==
--- NOTE | 2021-04-10 13:17 | US ---
EXAMINATION TYPE: US thyroid st tissue head/neck DATE OF EXAM: 04/10/2021 COMPARISON: 03/22/2020 CLINICAL HISTORY: E04.2 Nontoxic multinodular goiter. GLAND SIZE: Right Lobe: 5.6 x 3.1 x 3.0 cm Overall Parenchyma: heterogenous Left Lobe: 6.3 x 2.9 x 2.9 cm Overall Parenchyma: heterogeneous Isthmus Thickness: 0.9 cm NODULES RIGHT: # of nodules measured on right: 3 1. 0.9 X 1.0 x 1.0 cm, upper lateral, mixed cystic and solid, hypoechoic nodule, which is wider paul n tall, with ill-defined margins, without echogenic foci. 2. 1.8 X 1.5 x 1.6 cm, upper medial, mixed cystic and solid, hypoechoic nodule, which is taller paul n wide, with ill-defined margins, without echogenic foci. Prior size: 1.3 x 1.3 x 0.9 cm 3. 0.6 X 0.6 x 0.5 cm, mid mid, cystic or almost completely cystic, anechoic nodule, which is talle r than wide, with smooth margins, without echogenic foci. Prior size: 0.5 x 0.6 x 0.5 cm LEFT: # of nodules measured on left: 2 1. 0.7 X 0.7 x 0.5 cm, upper medial, mixed cystic and solid, hypoechoic nodule, which is taller paul n wide, with ill-defined margins, without echogenic foci. 2. 2.0 X 1.2 x 0.9 cm, mid mid, solid or almost completely solid, hypoechoic nodule, which is tall er than wide, with ill-defined margins, without echogenic foci. ISTHMUS: # of nodules measured in the isthmus: 1 1. 1.3 X 0.8 x 1.2 cm mixed cystic and solid, hypoechoic nodule, which is taller than wide, with sm ooth margins, without echogenic foci. Prior size: 1.0 x 1.0 x .07 cm Bilateral neck scanned, no evidence of lymphadenopathy. Multiple bilateral nodules seen, largest measured IMPRESSION: Nonspecific thyroid nodularity and heterogeneity.
== END | disposition home or self-care (01) ==
LOC: RADUSWWP 10:10
PROVIDERS: ATTEND Internal Medicine Endocrinology, Diabetes & Metabolism
DX: E04.2 Nontoxic multinodular goiter (principal)
CPT/HCPCS: 76536

== ENCOUNTER → 2021-05-09 | Outpatient (CLI) | payer MEDICARE, OTHER ==
--- NOTE | 2021-05-09 17:51 | PN ---
PROGRESS NOTE Michaela is 71, coming in for a followup regarding obstructive sleep apnea. Doing extremely well. Her interval history is positive for a diagnosis of prediabetes mellitus and the patient subsequently lost around 20 pounds, which improved her blood sugar control. She has chronic stage 3 kidney disease in addition to various comorbidities mentioned earlier such as hyperlipidemia and hypertension. In regard to obstructive sleep apnea, she continues to be on CPAP therapy at a pressure of 8 cm of water. Her baseline AHI is 32. Based on 30-day compliance, she has been averaging around 7.6 hours of CPAP use per night and she has utilized the CPAP machine more than 4 hours 100% of the time. Leak is on order of 24 L/minute and her AHI is down to 1.2. No complaints. No hypersomnia or sleepiness during the day. No other issues otherwise. PHYSICAL EXAMINATION: BP is 120/61, pulse 75, respirations 16, temperature 97.1, saturation 98% on room air. BMI 26.4. Height is 5 feet 5 inches, weight is 159. Alton score is 6. GENERAL APPEARANCE: Calm, comfortable. No acute distress. HEAD: Atraumatic, normocephalic. Neck is supple. No JVD. No goiter or neck masses. LUNGS: Clear to auscultation. Heart sounds are regular rate and rhythm. Normal S1, S2. No S3, S4. No murmurs. ABDOMEN: Soft, nontender. No organomegaly. EXTREMITIES: No edema. No cyanosis or clubbing. IMPRESSION: 1. Symptomatic obstructive sleep apnea, AHI of 32, currently on CPAP pressure of 8. Treatment remains successful. 2. Hypersomnia, recovered. 3. Chronic kidney disease. 4. Prediabetes, currently on no treatment. 5. Hypertension. 6. Hyperlipidemia. 7. Chronic constipation. PLAN: Continue CPAP therapy at the same level of pressures. Refill her supplies. The patient will be given all of her supplies back to her DME. No need for any pressure adjustments. Treatment is stable. Comorbidities are stable. Will continue to follow. MMODL / IJN: [id number] /
== END ==
LOC: SLEEP 15:18
PROVIDERS: ATTEND Internal Medicine Critical Care Medicine
DX: G47.33 Obstructive sleep apnea (adult) (pediatric) (principal); N18.9 Chronic kidney disease, unspecified; R73.03 Prediabetes; K59.00 Constipation, unspecified; E78.5 Hyperlipidemia, unspecified; I10 Essential (primary) hypertension; Z99.89 Dependence on other enabling machines and devices; Z91.040 Latex allergy status

== ENCOUNTER → 2021-09-14 | Outpatient (CLI) | payer MEDICARE, OTHER ==
[2021-09-14 15:29] LABS: African American GFR (CKD) 61.9 (60.0-200.0); Anion Gap 8.8 mmol/L (10.00-18.00); Blood Urea Nitrogen 16.8 mg/dL (9.0-27.0); Calcium 9.7 mg/dL (8.7-10.3); Carbon Dioxide 26.1 mmol/L (20.0-27.5); Non-African American GFR(CKD) 53.4 (60.0-200.0)
== END | disposition home or self-care (01) ==
LOC: LABWHC1 08:43
PROVIDERS: ATTEND Internal Medicine
DX: I10 Essential (primary) hypertension (principal); R73.03 Prediabetes
CPT/HCPCS: 36415; 80048; 83036

== ENCOUNTER 2021-10-20 08:57 | Day surgery (SDC) | payer MEDICARE, OTHER ==
--- NOTE | 2021-10-20 11:01 | US ---
EXAMINATION TYPE: US FNA first lesion, US FNA each additional lesion DATE OF EXAM: 10/20/2021 COMPARISON: NONE HISTORY: Thyroid nodules. Maximal barrier technique was utilized. After informed consent, skin overlying the lower pole left l obe thyroid nodule was localized with ultrasound and the overlying skin prepped and draped. Ultrasoun d was utilized using sterile technique. Lidocaine was used for local anesthesia. Five passes with a 25-gauge needle were made into the nodule and aspirated specimen was submitted to cytology. Using similar technique the upper pole right lobe nodule was subsequently sampled, 5 passes with a 25 -gauge needle under ultrasound guidance and fine-needle aspiration submitted to pathology. Following the procedure hemostasis achieved. No immediate complication. The patient discharged in stable cond ition. IMPRESSION: STATUS POST ULTRASOUND GUIDED FINE NEEDLE ASPIRATION OF THYROID NODULES, PATHOLOGY IS NATALIO DING. THIS PROCEDURE WAS PERFORMED BY THE UNDERSIGNED.
[2021-10-20 15:33] VITALS: BP 142/74; PULSE 68; RESP 18; TEMP 97.8
== END 2021-10-20 10:35 | disposition home or self-care (01) ==
LOC: RADPROMAIN 08:57
PROVIDERS: ATTEND Internal Medicine Endocrinology, Diabetes & Metabolism
DX: E04.2 Nontoxic multinodular goiter (principal)
CPT/HCPCS: 10005; 10006; 88173; 88305

== ENCOUNTER → 2022-01-05 | Outpatient (CLI) | payer MEDICARE, OTHER ==
[2022-01-05 15:12] LABS: ALT 20 U/L (8-44); AST 22 U/L (13-35); African American GFR (CKD) 58.5 (60.0-200.0); Albumin 4.5 g/dL (3.8-4.9); Albumin/Globulin Ratio 1.88 (1.60-3.17); Alkaline Phosphatase 75 U/L (41-126); BUN/Creat Ratio 16.45 Ratio (12.00-20.00); Blood Urea Nitrogen 18.1 mg/dL (9.0-27.0); Calcium 9.6 mg/dL (8.7-10.3); Carbon Dioxide 28.4 mmol/L (20.0-27.5); Chloride 105 mmol/L (96-109); Chol/HDL Ratio 2.89 Ratio; Globulin 2.4 g/dL (1.6-3.3); Glucose 97 mg/dL (70-110); Non-African American GFR(CKD) 50.5 (60.0-200.0); Potassium 4.3 mmol/L (3.5-5.5); Sodium 143 mmol/L (135-145); Total Protein 6.9 g/dL (6.2-8.2); VLDL Calculation 13.38 mg/dL (5.00-40.00)
== END | disposition home or self-care (01) ==
LOC: LABWHC1 09:05
PROVIDERS: ATTEND Internal Medicine Endocrinology, Diabetes & Metabolism
DX: E78.2 Mixed hyperlipidemia (principal); E04.2 Nontoxic multinodular goiter; R73.03 Prediabetes
CPT/HCPCS: 36415; 80053; 80061; 83036; 84439; 84443

== ENCOUNTER → 2022-01-18 | Outpatient (CLI) | payer MEDICARE, OTHER ==
--- NOTE | 2022-01-18 11:18 | MM ---
Reason for Exam: Follow-up at short interval from prior study. Last screening mammogram was performed 12 month(s) ago. Patient History: Menarche at age 12. Patient has no children. Postmenopausal. Breast cancer, age 61. Other cancer. Previous chest radiation therapy. Estrogen for 3 years from age 26 until age 30. Hormonal Contraceptives for 5 years from age 20 until age 25. Tamoxifen for 3 months. Benign Excisional Biopsy on the left side. Benign Excisional Biopsy on the left side. 04/06/2011, Malignant Excisional Biopsy on the left side. 04/06/2011, Malignant Excisional Biopsy on the left side. 03/15/2011, Benign Core Biopsy on the left side. 09/06/2010, Benign Core Biopsy on the left side. 04/10/2006, Benign Core Biopsy on the right side. 2011, Radiation Therapy on the left side. Paternal cousin had breast cancer. Paternal aunt had breast cancer. Tissue Density: The breast tissue is heterogeneously dense. This may lower the sensitivity of mammography. Findings: Analyzed By CAD. Microclip upper outer quadrant right breast from prior biopsy. Postsurgical and posttreatment changes left breast. Unchanged dystrophic calcifications at the excisional scar. No significant change from prior exams. Overall Assessment: Benign, BI-RAD 2 Management: Screening Mammogram of both breasts in 1 year. 1. Patient should continue monthly self breast exams. 2. A clinical breast exam by your physician is recommended on an annual basis. 3. This exam should not preclude additional follow-up of suspicious palpable abnormalities. Results were given to the patient verbally at the time of exam. Electronically signed and approved by: Fiif Cali M.D. Radiologist
== END | disposition home or self-care (01) ==
LOC: RADMAMWWP 10:43
PROVIDERS: ATTEND Radiology Diagnostic Radiology
DX: R92.8 Other abnormal and inconclusive findings on diagnostic imaging of breast (principal); R92.1 Mammographic calcification found on diagnostic imaging of breast; Z85.3 Personal history of malignant neoplasm of breast
CPT/HCPCS: 77066; G0279; 77062

== ENCOUNTER → 2022-04-25 | Outpatient (CLI) | payer MEDICARE, OTHER ==
--- NOTE | 2022-04-25 10:17 | US ---
EXAMINATION TYPE: US abdomen complete DATE OF EXAM: 04/25/2022 COMPARISON: Prior renal ultrasound 2019 CLINICAL HISTORY: R09.89 OTH SYMPTOMS AND SIGNS INVOLVING THE CIRC AORTA. abdominal bruit. TECHNIQUE: Multiple sonographic images of the abdomen are obtained. FINDINGS: EXAM MEASUREMENTS: Liver Length: 13.7 cm Gallbladder Wall: 0.2 cm CBD: 0.2 cm Spleen: 9.6 cm Right Kidney: 9.6 x 3.9 x 4.5 cm Left Kidney: 10.0 x 4.3 x 4.1 cm Aorta prox: 2.1cm Aorta mid: 1.8cm Aorta distal: 1.7cm ANESTHESIOLOGY FACULTY NOTES: Pancreas: Tail obscured by overlying bowel gas Liver: hyperechoic vague area right lobe measuring 2.4 x 2.0 x 1.8cm suspect focal fatty infiltratio n Gallbladder: wnl Evidence for sonographic Arroyo's sign: no CBD: wnl Spleen: wnl Right Kidney: scattered echogenic foci ?stones mild pelvic fullness Left Kidney: wnl Upper IVC: wnl Abd Aorta: wnl, bifurcation obscured by overlying bowel gas The visualized liver slightly heterogeneous. The intrahepatic portion of the IVC and visualized abdo ellen aorta are within normal limits. There is no evidence of cholelithiasis. Common bile duct is u nremarkable. The visualized portions of the pancreas are homogenous. The spleen is unremarkable. K idneys are symmetric and free of hydronephrosis. No renal lesions are seen. IMPRESSION: 1. NO ULTRASOUND EVIDENCE FOR GREATER THAN 3.0 CM AAA. POSSIBLE NONOBSTRUCTING RIGHT RENAL CALCULI AN D MILD RIGHT-SIDED HYDRONEPHROSIS HAS SIMILAR APPEARANCE TO 2020 ULTRASOUND.
== END | disposition home or self-care (01) ==
LOC: RADUSWWP 08:52
PROVIDERS: ATTEND Internal Medicine
DX: N13.2 Hydronephrosis with renal and ureteral calculous obstruction (principal)
CPT/HCPCS: 76700

== ENCOUNTER → 2022-06-04 | Outpatient (CLI) | payer MEDICARE, OTHER ==
--- NOTE | 2022-06-04 17:08 | US ---
EXAMINATION TYPE: US kidneys/renal and bladder DATE OF EXAM: 06/04/2022 COMPARISON: 04/25/2022 CLINICAL HISTORY: N20.0 CALCULUS OF KIDNEY. Short term follow EXAM MEASUREMENTS: Right Kidney: 10.4 x 3.9 x 4.8 cm Left Kidney: 9.3 x 4.8 x 4.3 cm Right Kidney: Slight pelviectasis, improved from prior exam. No discrete echogenic foci with shadowi ng visualized. No contour deforming solid mass. Left Kidney: wnl . No shadowing calculi, hydronephrosis, or contour deforming solid mass. Bladder: wnl Bilateral Jets seen: Left visualized IMPRESSION: Slight pelviectasis of the right kidney which is improved from prior examination. No frnacisco hydronephr osis. No discrete shadowing renal calculi.
== END | disposition home or self-care (01) ==
LOC: RADUSWWP 15:56
PROVIDERS: ATTEND Internal Medicine
DX: N28.89 Other specified disorders of kidney and ureter (principal); N20.0 Calculus of kidney
CPT/HCPCS: 76770

== ENCOUNTER 2022-06-08 09:52 | Day surgery (SDC) | payer MEDICARE, OTHER ==
[~2022-06-08 09:52] MED LIST changes: +LIDOCAINE 1% (10MG/ML) FOR IV START INTRADERMA PRN
[2022-06-08] MEDS ORDERED: ONDANSETRON 4 MG/2 ML VIAL ONE (10:35)
[2022-06-08 10:53] LABS: Glucose,Whole Blood 83 mg/dL (70-110)
[2022-06-08] MEDS ORDERED: ONDANSETRON 4 MG/2 ML VIAL IVP ONE (10:55)
[2022-06-08 10:57] VITALS: RESP 16; TEMP 97.3
[2022-06-08] MEDS ORDERED: LIDOCAINE 2% INJ 20 MG/ML (2 ML VIAL) ONE (11:10)
[2022-06-08] MEDS ORDERED: PROPOFOL 10 MG/ML 20 ML VIAL IV ONE (11:10)
--- NOTE | 2022-06-08 11:36 | P.PCN ---
Date of Procedure: 06/08/22 Procedure(s) Performed: BRIEF HISTORY: Patient is a in 72 to-year-old pleasant white female scheduled for an elective colonoscopy as a part of evaluation of prior history of colon polyps. Last colonoscopy was 5 years ago. PROCEDURE PERFORMED: Colonoscopy. PREOPERATIVE DIAGNOSIS: History of colon polyps. IV sedation per Anesthesia. PROCEDURE: After informed consent was obtained, the patient, was brought into the endoscopy unit. IV sedation was administered by Anesthesia under continuous monitoring. Digital rectal examination was normal. Initially the Olympus CF-160 flexible video colonoscope was then inserted in the rectum, gradually advanced into the cecum without any difficulty. Careful examination was performed as the scope was gradually being withdrawn. Ileocecal valve and the appendiceal orifice were visualized and appeared normal. Prep was excellent. Mucosa of the cecum, ascending colon, transverse colon, descending colon, sigmoid colon, and rectum appeared normal. On a diffuse diverticulosis. Retroflexion was performed in the rectum and all internal hemorrhoids were seen. The patient tolerated the procedure well. IMPRESSION: Normal-appearing colon from rectum to cecum no evidence of colorectal neoplasia. Moderate diffuse diverticulosis. Small internal hemorrhoids RECOMMENDATIONS: Findings of this examination were discussed with the patient as well as her family. She was advised to have a repeat colonoscopy in 5 years because of the prior history of colon polyps.
[2022-06-08 12:03] VITALS: BP 125/66; PULSE 76
== END 2022-06-08 12:34 | disposition home or self-care (01) ==
LOC: ORWHC2ENDO 09:52
PROVIDERS: ATTEND Internal Medicine Gastroenterology
DX: Z12.11 Encounter for screening for malignant neoplasm of colon (principal); K57.30 Diverticulosis of large intestine without perforation or abscess without bleeding; K64.8 Other hemorrhoids; I10 Essential (primary) hypertension; E78.5 Hyperlipidemia, unspecified; G47.33 Obstructive sleep apnea (adult) (pediatric); E07.9 Disorder of thyroid, unspecified; Z86.010 Personal history of colon polyps; Z79.890 Hormone replacement therapy; Z79.82 Long term (current) use of aspirin; Z79.899 Other long term (current) drug therapy; Z91.040 Latex allergy status
CPT/HCPCS: J2405; J2704; J2001; G0105; 45378

== ENCOUNTER → 2022-06-13 | Outpatient (CLI) | payer MEDICARE, OTHER ==
[2022-06-13 15:04] LABS: ALT 22 U/L (8-44); AST 19 U/L (13-35); African American GFR (CKD) 58.1 (60.0-200.0); Albumin 4.5 g/dL (3.8-4.9); Albumin/Globulin Ratio 2.25 (1.60-3.17); Alkaline Phosphatase 72 U/L (41-126); BUN/Creat Ratio 14.55 Ratio (12.00-20.00); Calcium 9.7 mg/dL (8.7-10.3); Carbon Dioxide 26.3 mmol/L (20.0-27.5); Chloride 106 mmol/L (96-109); Chol/HDL Ratio 3.17 Ratio; Glucose 99 mg/dL (70-110); LDL Cholesterol,Calculated 81.2 mg/dL (0.0-131.0); Non-African American GFR(CKD) 50.1 (60.0-200.0); Potassium 3.9 mmol/L (3.5-5.5); Sodium 143 mmol/L (135-145); Total Protein 6.5 g/dL (6.2-8.2); VLDL Calculation 18.72 mg/dL (5.00-40.00)
== END | disposition home or self-care (01) ==
LOC: LABWHC1 09:20
PROVIDERS: ATTEND Internal Medicine Endocrinology, Diabetes & Metabolism
DX: E04.2 Nontoxic multinodular goiter (principal); E78.2 Mixed hyperlipidemia; R73.03 Prediabetes
CPT/HCPCS: 36415; 80053; 80061; 83036; 84439; 84443

== ENCOUNTER → 2023-01-03 | Outpatient (CLI) | payer MEDICARE, OTHER ==
[2023-01-03 13:02] LABS: Creatinine,Urine Random 89.1 mg/dL; Protein/Creatinine Ratio,Urine 0.079
[2023-01-03 16:03] LABS: HCT 40.7 % (37.2-46.3); HGB 12.8 d/dL (12.0-15.0); MCH 31.3 pg (27.0-32.0); MCHC 31.4 d/dL (32.0-37.0); MCV 99.5 FL (80.0-97.0); Mean Platelet Volume 10.3 FL (9.5-12.2); NRBC Per 100 WBC 0 X 10*3/uL (0.00-0.01); Platelet Count 221 X 10*3/uL (140-440); RBC 4.09 X 10*6/uL (4.10-5.20); RDW 14.3 % (11.5-14.5); WBC 4.32 X 10*3/uL (4.50-10.00)
[2023-01-03 16:28] LABS: Chol/HDL Ratio 2.54 Ratio; LDL Cholesterol,Calculated 70.2 mg/dL (0.0-131.0); VLDL Calculation 12.92 mg/dL (5.00-40.00)
[2023-01-03 16:29] LABS: ALT 25 U/L (8-44); AST 25 U/L (13-35); Albumin 4.6 d/dL (3.8-4.9); Albumin/Globulin Ratio 2.09 Ratio (1.60-3.17); Alkaline Phosphatase 73 U/L (41-126); Blood Urea Nitrogen 18.7 mg/dL (9.0-27.0); Calcium 10.1 mg/dL (8.7-10.3); Carbon Dioxide 27.2 mmol/L (21.6-31.8); Chloride 107 mmol/L (96-109); Ferritin 67.4 ng/mL (10.0-291.0); Globulin 2.2 d/dL (1.6-3.3); Glucose 95 mg/dL (70-110); Iron 152 UG/DL (50-170); Potassium 4.4 mmol/L (3.5-5.5); Sodium 144 mmol/L (135-145); Total Bilirubin 0.8 mg/dL (0.3-1.2); Total Iron Binding Capacity 381 UG/DL (228-460); Total Protein 6.8 d/dL (6.2-8.2)
[2023-01-03 16:39] LABS: Appearance,Urine Clear (Clear); Bilirubin,Urine Negative (Negative); Blood,Urine Negative (Negative); Color,Urine Yellow (Yellow); Ketones,Urine Trace (Negative); Nitrite,Urine Negative (Negative); Specific Gravity,Urine 1.014 (1.001-1.030); Urobilinogen,Urine 0.2 E.U./DL
== END | disposition home or self-care (01) ==
LOC: LABWHC1 08:56
PROVIDERS: ATTEND Internal Medicine Interventional Cardiology
DX: I12.9 Hypertensive chronic kidney disease with stage 1 through stage 4 chronic kidney disease, or unspecified chronic kidney disease (principal); N18.9 Chronic kidney disease, unspecified; E78.2 Mixed hyperlipidemia
CPT/HCPCS: 36415; 80053; 80061; 81003; 82570; 82728; 83540; 83550; 84156; 85027

== ENCOUNTER → 2023-01-21 | Outpatient (CLI) | payer MEDICARE, OTHER | END | disposition home or self-care (01) | LOC: RADMAMWWP 10:05 | PROVIDERS: ATTEND Radiology Radiation Oncology | DX: Z53.9 Procedure and treatment not carried out, unspecified reason (principal) ==

== ENCOUNTER → 2023-01-21 | Outpatient (CLI) | payer MEDICARE, OTHER ==
--- NOTE | 2023-01-21 10:57 | MM ---
Reason for Exam: Hx of breast cancer, conservation therapy. Last screening mammogram was performed 12 month(s) ago. Patient History: Menarche at age 12. Patient has no children. Postmenopausal. Breast cancer, left, age 61. Other cancer. Previous chest radiation therapy. Estrogen for 3 years from age 26 until age 30. Hormonal Contraceptives for 5 years from age 20 until age 25. Tamoxifen for 3 months. Benign Excisional Biopsy on the left side. Benign Excisional Biopsy on the left side. 04/06/2011, Malignant Excisional Biopsy on the left side. 04/06/2011, Malignant Excisional Biopsy on the left side. 03/15/2011, Benign Core Biopsy on the left side. 09/06/2010, Benign Core Biopsy on the left side. 04/10/2006, Benign Core Biopsy on the right side. 2011, Radiation Therapy on the left side. Paternal cousin had breast cancer. Paternal aunt had breast cancer. Prior Study Comparison: 11/21/2018 Bilateral Screening Mammogram, [facility]. 12/09/2018 Left Diagnostic Ultrasound, [facility]. 01/14/2020 Bilateral Diagnostic Mammogram, [facility]. 01/16/2021 Bilateral Diagnostic Mammogram, [facility]. 01/18/2022 Bilateral MG 3D diag mammo w/cad JOSE LUIS, [facility]. Tissue Density: There are scattered fibroglandular densities. Findings: Analyzed By CAD. Postprocedural changes left breast. Biopsy clip right breast. No new suspicious masses, calcifications or distortions. Overall Assessment: Benign, BI-RAD 2 Management: Screening Mammogram of both breasts in 1 year. Results were given to the patient verbally at the time of exam. Patient should continue monthly self-breast exams. A clinical breast exam by your physician is recommended on an annual basis. This exam should not preclude additional follow-up of suspicious palpable abnormalities. Note on Genet scores and lifetime risk: 1. A Genet score greater than 3% is considered moderate risk. If this is the case, consider specialist referral to assess eligibility for a risk reducing agent. 2. If overall lifetime risk for the development of breast cancer is 20% or higher, the patient may qualify for future screening with alternating mammogram and breast MRI. Electronically signed and approved by: Ryland Marie DO
--- NOTE | 2023-01-21 12:30 | US ---
EXAMINATION TYPE: US thyroid st tissue head/neck DATE OF EXAM: 01/21/2023 COMPARISON: 04/10/2021 10/20/2021 CLINICAL INDICATION: Female, 72 years old with history of Z85.3 PERSONAL HISTORY OF MALIGNANT NEOPLAS M OF BR; Thyroid nodules GLAND SIZE: Right Lobe: 5.9 x 3.3 x 2.8 cm Overall Parenchyma: heterogenous Left Lobe: 7.5 x 3.1 x 2.7 cm Overall Parenchyma: heterogenous Isthmus Thickness: 0.6 cm NODULES RIGHT: # of nodules measured on right: subcentimeter previous not well visualized on today's study. LEFT: # of nodules measured on left: 1 1. 2.0 X 1.4 x 1.6 cm, Prior size: 2.0 x 0.9 x 1.2 cm TIRADS Score: 4 TIRADS Category 4: Moderately Suspicious Composition: Solid or almost completely solid (2 points). Echogenicity: Hypoechoic (2 points). Shape: Wider than tall (0 points). Margin: Smooth (0 points). Echogenic foci: None or large comet-tail artifacts (0 points) Recommendation: If >1.5cm: FNA; If >1cm: Follow up at 1,2, 3,5 years ISTHMUS: # of nodules measured in the isthmus: 1 1. 1.4 X 0.8 x 1.1 cm Prior size: 1.3 x 0.8 x 1.2 cm TIRADS Score: 4 TIRADS Category 4: Moderately Suspicious Composition: Solid or almost completely solid (2 points). Echogenicity: Hypoechoic (2 points). Shape: Wider than tall (0 points). Margin: Smooth (0 points). Echogenic foci: None or large comet-tail artifacts (0 points) Recommendation: If >1.5cm: FNA; If >1cm: Follow up at 1,2, 3,5 years Bilateral neck scanned, no evidence of lymphadenopathy. IMPRESSION: Stable thyroid nodules, on the left was biopsied 10/20/2021.
== END | disposition home or self-care (01) ==
LOC: RADUSWWP 10:07
PROVIDERS: ATTEND Internal Medicine Endocrinology, Diabetes & Metabolism
DX: R92.8 Other abnormal and inconclusive findings on diagnostic imaging of breast (principal); E04.2 Nontoxic multinodular goiter; Z80.3 Family history of malignant neoplasm of breast; Z78.0 Asymptomatic menopausal state
CPT/HCPCS: 77066; 76536; G0279; 77062

== ENCOUNTER → 2023-02-25 | Outpatient (CLI) | payer MEDICARE, OTHER ==
[2023-02-25 10:57] LABS: Basophils # (A) 0.06 X 10*3/uL (0.00-0.10); Basophils % (A) 1.3 %; Eosinophils % (A) 4.3 %; HGB 12.4 d/dL (12.0-15.0); Lymphocytes # (A) 1.28 X 10*3/uL (0.90-5.00); Lymphocytes % (A) 27.5 %; MCHC 31.8 d/dL (32.0-37.0); MCV 100.8 FL (80.0-97.0); Mean Platelet Volume 9.9 FL (9.5-12.2); Monocytes # (A) 0.55 X 10*3/uL (0.20-1.00); Monocytes % (A) 11.8 %; NRBC Per 100 WBC 0 X 10*3/uL (0.00-0.01); Neutrophils # (A) 2.55 X 10*3/uL (1.80-7.70); Neutrophils % (A) 54.9 %; Platelet Count 194 X 10*3/uL (140-440); RBC 3.87 X 10*6/uL (4.10-5.20); RDW 13.6 % (11.5-14.5); WBC 4.65 X 10*3/uL (4.50-10.00)
[2023-02-25 11:17] LABS: ALT 20 U/L (8-44); AST 24 U/L (13-35); Albumin 4.4 d/dL (3.8-4.9); Albumin/Globulin Ratio 2.44 Ratio (1.60-3.17); Alkaline Phosphatase 81 U/L (41-126); BUN/Creat Ratio 15.67 Ratio (12.00-20.00); Blood Urea Nitrogen 18.8 mg/dL (9.0-27.0); Calcium 9.6 mg/dL (8.7-10.3); Carbon Dioxide 27.3 mmol/L (21.6-31.8); Chloride 106 mmol/L (96-109); Chol/HDL Ratio 2.55 Ratio; Globulin 1.8 d/dL (1.6-3.3); Glucose 92 mg/dL (70-110); LDL Cholesterol,Calculated 69.5 mg/dL (0.0-131.0); Magnesium 2.4 mg/dL (1.5-2.4); Potassium 4.1 mmol/L (3.5-5.5); Sodium 144 mmol/L (135-145); T4, Free (Free Thyroxine) 1.31 ng/dL (0.80-1.80); Total Bilirubin 0.7 mg/dL (0.3-1.2); Total Protein 6.2 d/dL (6.2-8.2); Uric Acid 4.7 mg/dL (2.9-7.7); VLDL Calculation 8.94 mg/dL (5.00-40.00)
[2023-02-25 16:05] LABS: Appearance,Urine Clear (Clear); Bilirubin,Urine Negative (Negative); Blood,Urine Negative (Negative); Color,Urine Yellow (Yellow); Ketones,Urine Negative (Negative); Nitrite,Urine Negative (Negative); Specific Gravity,Urine 1.015 (1.001-1.030)
== END | disposition home or self-care (01) ==
LOC: LABWHC1 07:53
PROVIDERS: ATTEND Internal Medicine
DX: I12.9 Hypertensive chronic kidney disease with stage 1 through stage 4 chronic kidney disease, or unspecified chronic kidney disease (principal); N18.31 Chronic kidney disease, stage 3a; E78.2 Mixed hyperlipidemia; E04.2 Nontoxic multinodular goiter; R73.03 Prediabetes
CPT/HCPCS: 36415; 80053; 80061; 81003; 83036; 83735; 83970; 84439; 84443; 84550; 85025

== ENCOUNTER → 2023-05-06 | Outpatient (CLI) | payer MEDICARE, OTHER ==
--- NOTE | 2023-05-06 12:05 | BD ---
EXAMINATION TYPE: Axial Bone Density DATE OF EXAM: 05/06/2023 CLINICAL HISTORY: 73 years old Female. ICD-10 CODE: M85.851 OTH DISRD OF BONE DENSITY AND STRUCTURE, R Height: 64.1 Weight: 160 FRAX RISK QUESTIONS: Family History (Parent hip fracture): yes History of Fracture in Adulthood: yes RISK FACTORS HISTORY OF: hx of lt ankle fx at 55 yrs old Surgery to Spine laminotomy disc surg Family History of Osteoporosis: yes, mother Postmenopausal woman: at 50 Lost more than 2 inches in height since high school: yes Hyperparathyroidism: no Adrenal Insufficiency: no MEDICATIONS: Additional Medications: calcium and vit d, irbesartan, zetia, cholesterol meds, hx of radiation, bp m eds, Additional History: hx of breast cancer with radiation, cholesterol meds, hypertension, pre diabetic, EXAM MEASUREMENTS: Bone mineral densitometry was performed using the [employer]. Bone mineral density as measured about the Lumbar spine is: ----- L1-L4(G/cm2): 1.142 T Score Values are as follows: ----- L1: -1.5 ----- L2: -1.1 ----- L3: -0.9 ----- L4: 1.9 ----- L1-L4: -0.3 Z Score Values are as follows: ----- L1: 0.0 ----- L2: 0.4 ----- L3: 0.5 ----- L4: 3.3 ----- L1-L4: 1.1 Bone mineral density has: Decreased -2.2% since study of: 04.07.2021 Bone mineral density about the R hip (g/cm2): 0.925 Bone mineral density about the L hip (g/cm2): 0.874 T Score values are as follows: -----R Neck: -1.1 -----L Neck: -1.3 -----R Total: -0.6 -----L Total: -1.1 Z Score values are as follows: -----R Neck: 0.6 -----L Neck: 0.4 -----R Total: 0.8 -----L Total: 0.4 Bone mineral density has: Decreased -2.3% since study of: 04.07.2021 FRAX%s: The graph provided illustrates a 23.4% chance for a major osteoporotic fx and a 7.4% chance for the hips probability for fx in 10 years time. IMPRESSION: Normal (Values between +1 and -1 indicate normal bone mass). Consider repeating this study in 5 year s or sooner if there is some new clinical indication. NOTE: T-SCORE=SD OF THE YOUNG ADULT MEAN.
== END | disposition home or self-care (01) ==
LOC: RADBDWWP 07:49
PROVIDERS: ATTEND Internal Medicine
DX: M85.89 Other specified disorders of bone density and structure, multiple sites (principal); Z78.0 Asymptomatic menopausal state
CPT/HCPCS: 77080

== ENCOUNTER → 2023-06-20 | Outpatient (CLI) | payer MEDICARE, OTHER ==
[2023-06-20 10:47] LABS: Creatinine,Urine Random 66.3 mg/dL; Protein/Creatinine Ratio,Urine 0.106
[2023-06-20 11:11] LABS: HCT 38.3 % (37.2-46.3); HGB 12.2 g/dL (12.0-15.0); MCH 31.4 pg (27.0-32.0); MCHC 31.9 g/dL (32.0-37.0); MCV 98.5 FL (80.0-97.0); Mean Platelet Volume 10.1 FL (9.5-12.2); NRBC Per 100 WBC 0 X 10*3/uL (0.00-0.01); Platelet Count 209 X 10*3/uL (140-440); RBC 3.89 X 10*6/uL (4.10-5.20); RDW 13.9 % (11.5-14.5); WBC 5.39 X 10*3/uL (4.50-10.00)
[2023-06-20 11:36] LABS: BUN/Creat Ratio 17.83 Ratio (12.00-20.00); Blood Urea Nitrogen 21.4 mg/dL (9.0-27.0); Carbon Dioxide 28.1 mmol/L (21.6-31.8); Chloride 106 mmol/L (96-109); Chol/HDL Ratio 2.69 Ratio; Glucose 94 mg/dL (70-110); LDL Cholesterol,Calculated 71.9 mg/dL (0.0-131.0); Magnesium 2.3 mg/dL (1.5-2.4); Phosphorus 3.5 mg/dL (2.4-5.1); Sodium 143 mmol/L (135-145); VLDL Calculation 13.04 mg/dL (5.00-40.00)
[2023-06-20 11:37] LABS: ALT 21 U/L (8-44); AST 21 U/L (13-35); Albumin 4.3 g/dL (3.8-4.9); Albumin/Globulin Ratio 2.15 Ratio (1.60-3.17); Alkaline Phosphatase 71 U/L (41-126); Calcium 9.7 mg/dL (8.7-10.3); Total Bilirubin 0.6 mg/dL (0.3-1.2); Total Protein 6.3 g/dL (6.2-8.2)
[2023-06-20 16:26] LABS: Appearance,Urine Clear (Clear); Bilirubin,Urine Negative (Negative); Blood,Urine Negative (Negative); Color,Urine Yellow (Yellow); Ketones,Urine Negative (Negative); Nitrite,Urine Negative (Negative); Specific Gravity,Urine 1.013 (1.001-1.030); Urobilinogen,Urine 0.2 E.U./DL
[2023-06-20 19:36] LABS: Microalbumin Creatinine Ratio <19 mg/g Cr (0-30); Urine Creatinine 63.3 mg/dL (28.0-217.0)
== END | disposition home or self-care (01) ==
LOC: LABWHC1 07:55
PROVIDERS: ATTEND Internal Medicine Interventional Cardiology
DX: E78.2 Mixed hyperlipidemia (principal)
CPT/HCPCS: 36415; 80053; 80061; 81003; 82043; 82570; 83036; 83735; 84100; 84156; 85027

== ENCOUNTER → 2023-10-15 | Outpatient (CLI) | payer MEDICARE, OTHER ==
[2023-10-15 14:50] LABS: Basophils # (A) 0.04 X 10*3/uL (0.00-0.10); Basophils % (A) 0.8 %; Eosinophils # (A) 0.14 X 10*3/uL (0.04-0.35); Eosinophils % (A) 2.9 %; HCT 40.2 % (37.2-46.3); HGB 12.8 g/dL (12.0-15.0); Immature Grans, Automated 0 %; Lymphocytes % (A) 24.6 %; MCHC 31.8 g/dL (32.0-37.0); MCV 100.5 FL (80.0-97.0); Mean Platelet Volume 9.9 FL (9.5-12.2); Monocytes # (A) 0.54 X 10*3/uL (0.20-1.00); Monocytes % (A) 11.1 %; NRBC Per 100 WBC 0 X 10*3/uL (0.00-0.01); Neutrophils # (A) 2.95 X 10*3/uL (1.80-7.70); Neutrophils % (A) 60.6 %; Platelet Count 227 X 10*3/uL (140-440); RDW 13.6 % (11.5-14.5); WBC 4.87 X 10*3/uL (4.50-10.00)
[2023-10-15 16:22] LABS: ALT 19 U/L (8-44); AST 23 U/L (13-35); Albumin 4.6 g/dL (3.8-4.9); Alkaline Phosphatase 89 U/L (41-126); BUN/Creat Ratio 14.55 Ratio (12.00-20.00); Calcium 9.6 mg/dL (8.7-10.3); Carbon Dioxide 27.6 mmol/L (21.6-31.8); Chloride 107 mmol/L (96-109); Chol/HDL Ratio 2.62 Ratio; Globulin 2.3 g/dL (1.6-3.3); Glucose 96 mg/dL (70-110); LDL Cholesterol,Calculated 75.4 mg/dL (0.0-131.0); Sodium 145 mmol/L (135-145); Total Bilirubin 0.5 mg/dL (0.3-1.2); Total Protein 6.9 g/dL (6.2-8.2); VLDL Calculation 12.96 mg/dL (5.00-40.00)
[2023-10-15 18:54] LABS: Microalbumin Creatinine Ratio <12 mg/g Cr (0-30)
== END | disposition home or self-care (01) ==
LOC: LABWHC1 08:05
PROVIDERS: ATTEND Internal Medicine
DX: Z00.00 Encounter for general adult medical examination without abnormal findings (principal); I12.9 Hypertensive chronic kidney disease with stage 1 through stage 4 chronic kidney disease, or unspecified chronic kidney disease; N18.31 Chronic kidney disease, stage 3a; E78.2 Mixed hyperlipidemia; E55.9 Vitamin D deficiency, unspecified; R73.03 Prediabetes
CPT/HCPCS: 36415; 80053; 80061; 82043; 82306; 82570; 83036; 84443; 85025

== ENCOUNTER → 2023-11-15 | Outpatient (CLI) | payer MEDICARE, OTHER ==
--- NOTE | 2023-11-17 17:50 | US ---
EXAMINATION TYPE: US thyroid st tissue head/neck DATE OF EXAM: 11/15/2023 COMPARISON: Multiple 01/21/2023 CLINICAL INDICATION: Female, 73 years old with history of E04.2 NONTOXIC MULTINODULAR GOITER; Patient denies any changes from prior GLAND SIZE: Right Lobe: 6.8 x 3.3 x 3.4 cm Overall Parenchyma: heterogeneous Left Lobe: 6.6 x 3.0 x 2.3 cm Overall Parenchyma: heterogeneous Isthmus Thickness: 0.6 cm NODULES RIGHT: # of nodules measured on right: 1 1. 1.0 X 0.8 x 1.0 cm, lower mid, spongiform, isoechoic nodule, which is wider than tall, with lobu lated or irregular margins, with echogenic foci. Prior size: on prior not measured LEFT: # of nodules measured on left: 2 1. 1.6 X 1.2 x 1.2 cm, lower mid, solid or almost completely solid, isoechoic nodule, which is wide r than tall, with ill-defined margins, without echogenic foci. Prior size: 2.0 x 1.4 x 1.6 cm 2. 1.3 X 0.8 x 1.2 cm, upper medial, spongiform, isoechoic nodule, which is wider than tall, with ill-defined margins, without echogenic foci. TR 1. Prior size: ? no prior ISTHMUS: # of nodules measured in the isthmus: 1 1. 1.1 X 0.8 x 1.2 cm spongiform, isoechoic nodule, which is wider than tall, with smooth margins, with echogenic foci. Prior size: 1.4 x 0.8 x 1.1 cm Bilateral neck scanned, no evidence of lymphadenopathy. IMPRESSION: Redemonstration of enlarged multinodular thyroid gland with a new left thyroid lobe 1.3 cm TR 1 nodul e. Remaining nodules are stable to marginally smaller in size from prior exam.
== END | disposition home or self-care (01) ==
LOC: RADUSWWP 11-12 09:32
PROVIDERS: ATTEND Internal Medicine Endocrinology, Diabetes & Metabolism
DX: E04.2 Nontoxic multinodular goiter (principal)
CPT/HCPCS: 76536

== ENCOUNTER → 2023-11-15 | Outpatient (CLI) | payer MEDICARE, OTHER ==
[2023-11-15 16:10] LABS: T4, Free (Free Thyroxine) 1.32 ng/dL (0.80-1.80)
== END | disposition home or self-care (01) ==
LOC: LABWHC1 09:37
PROVIDERS: ATTEND Internal Medicine Endocrinology, Diabetes & Metabolism
DX: E04.2 Nontoxic multinodular goiter (principal); R73.03 Prediabetes
CPT/HCPCS: 36415; 83036; 84439; 84443

== ENCOUNTER → 2023-12-24 | Outpatient (CLI) | payer MEDICARE, OTHER ==
[2023-12-24 10:35] LABS: Basophils # (A) 0.05 X 10*3/uL (0.00-0.10); Basophils % (A) 0.9 %; Eosinophils # (A) 0.17 X 10*3/uL (0.04-0.35); Eosinophils % (A) 3.1 %; HCT 42.9 % (37.2-46.3); HGB 13.6 g/dL (12.0-15.0); Lymphocytes # (A) 1.45 X 10*3/uL (0.90-5.00); Lymphocytes % (A) 26.8 %; MCH 31.7 pg (27.0-32.0); MCHC 31.7 g/dL (32.0-37.0); Mean Platelet Volume 9.9 FL (9.5-12.2); Monocytes # (A) 0.62 X 10*3/uL (0.20-1.00); Monocytes % (A) 11.5 %; NRBC Per 100 WBC 0 X 10*3/uL (0.00-0.01); Neutrophils # (A) 3.11 X 10*3/uL (1.80-7.70); Neutrophils % (A) 57.5 %; Platelet Count 219 X 10*3/uL (140-440); RBC 4.29 X 10*6/uL (4.10-5.20); RDW 13.7 % (11.5-14.5); WBC 5.41 X 10*3/uL (4.50-10.00)
[2023-12-24 11:11] LABS: % Iron Saturation 37.24 (12.00-45.00); ALT 23 U/L (8-44); AST 23 U/L (13-35); Albumin 4.8 g/dL (3.8-4.9); Albumin/Globulin Ratio 2.18 Ratio (1.60-3.17); Alkaline Phosphatase 81 U/L (41-126); BUN/Creat Ratio 14.92 Ratio (12.00-20.00); Blood Urea Nitrogen 17.9 mg/dL (9.0-27.0); Carbon Dioxide 29.6 mmol/L (21.6-31.8); Chloride 106 mmol/L (96-109); Chol/HDL Ratio 2.77 Ratio; Ferritin 52.5 ng/mL (10.0-291.0); Globulin 2.2 g/dL (1.6-3.3); Glucose 101 mg/dL (70-110); Iron 143 UG/DL (50-170); LDL Cholesterol,Calculated 84.9 mg/dL (0.0-131.0); Magnesium 2.4 mg/dL (1.5-2.4); Phosphorus 3.7 mg/dL (2.4-5.1); Potassium 4.2 mmol/L (3.5-5.5); Sodium 145 mmol/L (135-145); Total Bilirubin 0.6 mg/dL (0.3-1.2); Total Iron Binding Capacity 384 UG/DL (228-460); Uric Acid 4.7 mg/dL (2.9-7.7)
[2023-12-24 11:31] LABS: Appearance,Urine Clear (Clear); Bilirubin,Urine Negative (Negative); Blood,Urine Negative (Negative); Color,Urine Yellow (Yellow); Ketones,Urine Negative (Negative); Nitrite,Urine Negative (Negative); Specific Gravity,Urine 1.019 (1.001-1.030); Urobilinogen,Urine 0.2 E.U./DL
[2023-12-24 11:36] LABS: Microalbumin Creatinine Ratio <13 mg/g Cr (0-30); Urine Creatinine 94.8 mg/dL (28.0-217.0)
[2023-12-24 11:46] LABS: Bacteria,Urine None Seen (None Seen)
== END | disposition home or self-care (01) ==
LOC: LABWHC1 07:41
PROVIDERS: ATTEND Internal Medicine Interventional Cardiology
DX: I12.9 Hypertensive chronic kidney disease with stage 1 through stage 4 chronic kidney disease, or unspecified chronic kidney disease (principal); E78.2 Mixed hyperlipidemia; E55.9 Vitamin D deficiency, unspecified; N25.81 Secondary hyperparathyroidism of renal origin; M10.9 Gout, unspecified; N39.0 Urinary tract infection, site not specified; R80.9 Proteinuria, unspecified; D63.1 Anemia in chronic kidney disease; N18.9 Chronic kidney disease, unspecified
CPT/HCPCS: 36415; 80053; 80061; 81001; 82043; 82306; 82570; 82728; 83540; 83550; 83735; 83970; 84100; 84550; 85025

== ENCOUNTER → 2024-02-21 | Outpatient (CLI) | payer MEDICARE, OTHER ==
--- NOTE | 2024-02-21 10:34 | MM ---
Reason for Exam: Hx of breast cancer, conservation therapy. Last mammogram was performed 1 year(s) and 1 month(s) ago. Patient History: Menarche at age 12. Patient has no children. Postmenopausal. Breast cancer, left, age 61. Other cancer. Previous chest radiation therapy. Estrogen for 3 years from age 26 until age 30. Hormonal Contraceptives for 5 years from age 20 until age 25. Tamoxifen for 3 months. Benign Excisional Biopsy on the left side. Benign Excisional Biopsy on the left side. 04/06/2011, Malignant Excisional Biopsy on the left side. 04/06/2011, Malignant Excisional Biopsy on the left side. 03/15/2011, Benign Core Biopsy on the left side. 09/06/2010, Benign Core Biopsy on the left side. 04/10/2006, Benign Core Biopsy on the right side. 2011, Radiation Therapy on the left side. Paternal cousin had breast cancer. Paternal aunt had breast cancer. Prior Study Comparison: 11/19/2016 Bilateral Diagnostic Mammogram, [facility]. 11/18/2017 Bilateral Diagnostic Mammogram, [facility]. 11/21/2018 Bilateral Screening Mammogram, [facility]. 01/14/2020 Bilateral Diagnostic Mammogram, [facility]. 01/16/2021 Bilateral Diagnostic Mammogram, [facility]. 01/18/2022 Bilateral MG 3D diag mammo w/cad JOSE LUIS, [facility]. 01/21/2023 Bilateral MG 3D diag mammo w/cad JOSE LUIS, [facility]. Tissue Density: The breasts are heterogeneously dense, which may obscure small masses. Findings: Analyzed By CAD. Microclip right breast from prior biopsy. Postsurgical and posttreatment changes left breast. There is redemonstration of some fat necrosis calcification at the 12:00 surgical scar in the left. There is an asymmetric density are unchanged. No significant change from prior exams. Overall Assessment: Benign, BI-RAD 2 Management: Screening Mammogram of both breasts in 1 year. Results were given to the patient verbally at the time of exam. Patient should continue monthly self-breast exams. A clinical breast exam by your physician is recommended on an annual basis. This exam should not preclude additional follow-up of suspicious palpable abnormalities. Electronically signed and approved by: Fifi Cali M.D. Radiologist
== END | disposition home or self-care (01) ==
LOC: RADMAMWWP 07:12
PROVIDERS: ATTEND Radiology Radiation Oncology
DX: Z85.3 Personal history of malignant neoplasm of breast
CPT/HCPCS: 77062; 77066

== ENCOUNTER → 2024-04-09 | Outpatient (CLI) | payer MEDICARE, OTHER ==
--- NOTE | 2024-04-09 13:21 | US ---
EXAMINATION TYPE: US thyroid st tissue head/neck DATE OF EXAM: 04/09/2024 COMPARISON: 11/15/2023 CLINICAL INDICATION: Female, 74 years old with history of E04.2 Nontoxic multinodular goiter; TECHNIQUE: Grayscale and color Doppler imaging of the thyroid gland. FINDINGS: GLAND SIZE: Right Lobe: 6.9 x 3.0 x 3.0 cm, enlarged Overall Parenchyma: heterogeneous Left Lobe: 6.4 x 3.0 x 2.7 cm, enlarged Overall Parenchyma: heterogeneous Isthmus Thickness: 0.8 cm NODULES RIGHT: # of nodules measured on right: 0 LEFT: # of nodules measured on left: 0 ISTHMUS: # of nodules measured in the isthmus: 1 1. 1.3 X 0.8 x 1.2 cm spongiform, hypoechoic nodule, which is wider than tall, with smooth margins, without echogenic foci. TR 2 Prior size: 1.1 x 0.8 x 1.2 cm Diffusely heterogeneous gland Bilateral neck scanned, no evidence of lymphadenopathy. IMPRESSION: 1. Thyromegaly with findings suggestive of thyroiditis. 2. Mild incremental increase in size of the isthmus thyroid nodule. Recommend continued surveillance according to ACR guidelines. 2017 ACR TI-RADS LEVEL: TR-RADS 2 - Not Suspicious: No FNA *Highest TI-RADS level nodule reported [email or web address] [facility], , 04/09/2024 1:19 PM
== END | disposition home or self-care (01) ==
LOC: RADUSWWP 12:20
PROVIDERS: ATTEND Internal Medicine Endocrinology, Diabetes & Metabolism
DX: E04.2 Nontoxic multinodular goiter (principal)
CPT/HCPCS: 76536

== ENCOUNTER → 2024-04-14 | Outpatient (CLI) | payer MEDICARE, OTHER ==
[2024-04-14 09:06] LABS: Appearance,Urine Clear (Clear); Bilirubin,Urine Negative (Negative); Blood,Urine Small (Negative); Color,Urine Colorless; Glucose,Urine (UA) 3+ (Negative); Ketones,Urine Negative (Negative); Leukocyte Esterase,Urine Negative (Negative); Mucus,Urine Rare /hpf; Nitrite,Urine Negative (Negative); Protein,Urine Negative (Negative); RBC,Urine 1 /hpf (0-5); Specific Gravity,Urine 1.006 (1.001-1.035); Urobilinogen,Urine <2.0 mg/dL (<2.0); WBC,Urine 1 /hpf (0-5)
[2024-04-14 15:51] LABS: Basophils # (A) 0.05 X 10*3/uL (0.00-0.10); Eosinophils # (A) 0.16 X 10*3/uL (0.04-0.35); HCT 41.7 % (37.2-46.3); HGB 13.1 g/dL (12.0-15.0); Lymphocytes # (A) 1.15 X 10*3/uL (0.90-5.00); Lymphocytes % (A) 21.9 %; MCHC 31.4 g/dL (32.0-37.0); MCV 98.8 FL (80.0-97.0); Mean Platelet Volume 9.4 FL (9.5-12.2); Monocytes # (A) 0.53 X 10*3/uL (0.20-1.00); Monocytes % (A) 10.1 %; NRBC Per 100 WBC 0 X 10*3/uL (0.00-0.01); Neutrophils # (A) 3.36 X 10*3/uL (1.80-7.70); Neutrophils % (A) 63.8 %; Platelet Count 219 X 10*3/uL (140-440); RBC 4.22 X 10*6/uL (4.10-5.20); RDW 13.8 % (11.5-14.5); WBC 5.26 X 10*3/uL (4.50-10.00)
[2024-04-14 15:53] LABS: ALT 15 U/L (8-44); AST 20 U/L (13-35); Albumin 4.4 g/dL (3.8-4.9); Albumin/Globulin Ratio 1.91 Ratio (1.60-3.17); Alkaline Phosphatase 76 U/L (41-126); Blood Urea Nitrogen 20.4 mg/dL (9.0-27.0); Calcium 9.6 mg/dL (8.7-10.3); Carbon Dioxide 26.5 mmol/L (21.6-31.8); Chloride 106 mmol/L (96-109); Chol/HDL Ratio 3.07 Ratio; Globulin 2.3 g/dL (1.6-3.3); Glucose 96 mg/dL (70-110); LDL Cholesterol,Calculated 89.6 mg/dL (0.0-131.0); Magnesium 2.2 mg/dL (1.5-2.4); Potassium 4.1 mmol/L (3.5-5.5); Sodium 144 mmol/L (135-145); T4, Free (Free Thyroxine) 1.15 ng/dL (0.80-1.80); Total Bilirubin 0.6 mg/dL (0.3-1.2); Total Protein 6.7 g/dL (6.2-8.2); VLDL Calculation 15.56 mg/dL (5.00-40.00)
[2024-04-14 22:40] LABS: Microalbumin Creatinine Ratio <25 mg/g Cr (0-30)
== END | disposition home or self-care (01) ==
LOC: LABWHC1 07:59
PROVIDERS: ATTEND Internal Medicine
CPT/HCPCS: 36415; 80053; 80061; 81001; 82043; 82570; 83036; 83735; 84439; 84443; 85025

== ENCOUNTER → 2024-05-18 | Outpatient (CLI) | payer MEDICARE, OTHER ==
--- NOTE | 2024-05-19 13:43 | US ---
EXAMINATION TYPE: US carotid duplex BILAT DATE OF EXAM: 05/18/2024 COMPARISON: NONE CLINICAL INDICATION: Female, 74 years old with history of I65.23 OCCLUSION AND STENOSIS OF BILATERAL CAROTID; Stenosis per order. Hx hypertension, hyperlipidemia. Additional History: .... TECHNIQUE: Grayscale, color Doppler and spectral Doppler evaluation of the bilateral carotid systems and vertebral arteries. Indirect Doppler criteria was utilized. FINDINGS: EXAM MEASUREMENTS: RIGHT: Peak Systolic Velocity (PSV) cm/sec ----- Right CCA: 64.0 ----- Right ICA: 77.1 ----- Right ECA: 64.2 ICA/CCA ratio: 1.20 RIGHT: End Diastole cm/sec ----- Right CCA: 16.3 ----- Right ICA: 24.4 ----- Right ECA: 8.39 LEFT: Peak Systolic Velocity (PSV) cm/sec ----- Left CCA: 56.2 ----- Left ICA: 69.3 ----- Left ECA: 56.6 ICA/CCA ratio: 1.23 LEFT: End Diastole cm/sec ----- Left CCA: 14.2 ----- Left ICA: 24.0 ----- Left ECA: 4.87 VERTEBRALS (direction of flow): Right Vertebral: Antegrade Left Vertebral: Antegrade Rhythm: Normal CERTIFIED PESTICIDE APPLICATOR NOTES: No elevated velocities. Color Doppler imaging shows patency with blood flow throughout the carotid artery. IMPRESSION: No evidence for hemodynamically significant stenosis. Criteria for Assigning % of Stenosis / Diameter reduction (Estimation based on the indirect measurements of the internal carotid artery velocities (ICA PSV). 1. Normal (no stenosis)=ICA PSV < 125 cm/s: ratio < 2.0: ICA EDV<40 cm/s. 2. Less than 50% stenosis=ICA PSV < 125 cm/s: ratio < 2.0: ICA EDV<40 cm/s. 3. 50 to 69% stenosis=ICA PSV of 125 to 230 cm/s: ration 2.0 ? 4.0: ICA EDV 40-100 cm/s. 4. Greater than 70% stenosis to near occlusion= ICA PSV > 230 cm/s: ratio > 4.0: ICA EDV > 100 cm/s. 5. Near occlusion= ICA PSV velocities may be low or undetectable: variable ratio and ICA EDV. 6. Total occlusion=unable to detect flow. [facility], , 05/19/2024 1:41 PM
== END | disposition home or self-care (01) ==
LOC: RADUSWWP 12:26
PROVIDERS: ATTEND Internal Medicine
DX: I65.23 Occlusion and stenosis of bilateral carotid arteries (principal); I10 Essential (primary) hypertension; E78.5 Hyperlipidemia, unspecified
CPT/HCPCS: 93880

== ENCOUNTER → 2024-05-28 | Outpatient (CLI) | payer MEDICARE, OTHER ==
[2024-05-28 10:22] LABS: Appearance,Urine Clear (Clear); Bilirubin,Urine Negative (Negative); Blood,Urine Negative (Negative); Color,Urine Yellow (Yellow); Ketones,Urine Negative (Negative); Nitrite,Urine Negative (Negative); PH, Urine 6.5; Specific Gravity,Urine 1.018 (1.001-1.030); Urobilinogen,Urine 0.2 E.U./DL
[2024-05-28 10:28] LABS: Basophils # (A) 0.05 X 10*3/uL (0.00-0.10); Eosinophils # (A) 0.19 X 10*3/uL (0.04-0.35); Eosinophils % (A) 3.8 %; HCT 41.1 % (37.2-46.3); HGB 13.3 g/dL (12.0-15.0); Lymphocytes # (A) 1.21 X 10*3/uL (0.90-5.00); Lymphocytes % (A) 23.9 %; MCH 30.9 pg (27.0-32.0); MCHC 32.4 g/dL (32.0-37.0); MCV 95.6 FL (80.0-97.0); Mean Platelet Volume 8.9 FL (9.5-12.2); Monocytes # (A) 0.59 X 10*3/uL (0.20-1.00); Monocytes % (A) 11.7 %; NRBC Per 100 WBC 0 X 10*3/uL (0.00-0.01); Neutrophils % (A) 59.2 %; Platelet Count 222 X 10*3/uL (140-440); RDW 13.7 % (11.5-14.5); WBC 5.06 X 10*3/uL (4.50-10.00)
[2024-05-28 15:53] LABS: Albumin 4.4 g/dL (3.8-4.9); BUN/Creat Ratio 15.33 Ratio (12.00-20.00); Blood Urea Nitrogen 18.4 mg/dL (9.0-27.0); Calcium 9.6 mg/dL (8.7-10.3); Carbon Dioxide 25.6 mmol/L (21.6-31.8); Chloride 105 mmol/L (96-109); Ferritin 77.9 ng/mL (10.0-291.0); Glucose 95 mg/dL (70-110); Iron 152 UG/DL (50-170); Magnesium 2.5 mg/dL (1.5-2.4); Phosphorus 3.5 mg/dL (2.4-5.1); Potassium 4.2 mmol/L (3.5-5.5); Sodium 143 mmol/L (135-145); Total Iron Binding Capacity 347 UG/DL (228-460); Uric Acid 4.2 mg/dL (2.9-7.7)
[2024-05-28 22:13] LABS: Microalbumin Creatinine Ratio <10 mg/g Cr (0-30)
== END | disposition home or self-care (01) ==
LOC: LABWHC1 08:08
PROVIDERS: ATTEND Internal Medicine Nephrology
DX: N18.31 Chronic kidney disease, stage 3a (principal); E55.9 Vitamin D deficiency, unspecified; N25.81 Secondary hyperparathyroidism of renal origin; M10.9 Gout, unspecified; R80.9 Proteinuria, unspecified; D64.9 Anemia, unspecified; N39.0 Urinary tract infection, site not specified
CPT/HCPCS: 36415; 80048; 81003; 82040; 82043; 82306; 82570; 82728; 83540; 83550; 83735; 83970; 84100; 84550; 85025

== ENCOUNTER → 2024-06-26 | Outpatient (CLI) | payer MEDICARE, OTHER ==
[2024-06-26 15:31] LABS: ALT 17 U/L (8-44); AST 22 U/L (13-35); Albumin 4.3 g/dL (3.8-4.9); Albumin/Globulin Ratio 2.05 Ratio (1.60-3.17); Alkaline Phosphatase 67 U/L (41-126); BUN/Creat Ratio 16.25 Ratio (12.00-20.00); Blood Urea Nitrogen 19.5 mg/dL (9.0-27.0); Calcium 9.9 mg/dL (8.7-10.3); Carbon Dioxide 29.4 mmol/L (21.6-31.8); Chloride 108 mmol/L (96-109); Chol/HDL Ratio 3.01 Ratio; Globulin 2.1 g/dL (1.6-3.3); Glucose 94 mg/dL (70-110); LDL Cholesterol,Calculated 85.7 mg/dL (0.0-131.0); Potassium 4.3 mmol/L (3.5-5.5); Sodium 146 mmol/L (135-145); Total Bilirubin 0.5 mg/dL (0.3-1.2); Total Protein 6.4 g/dL (6.2-8.2); VLDL Calculation 18.48 mg/dL (5.00-40.00)
== END ==
LOC: LABWHC1 09:00
PROVIDERS: ATTEND Internal Medicine Interventional Cardiology
DX: E78.5 Hyperlipidemia, unspecified (principal); E78.2 Mixed hyperlipidemia
CPT/HCPCS: 36415; 80053; 80061

== ENCOUNTER → 2024-10-30 | Outpatient (CLI) | payer MEDICARE, OTHER ==
[2024-10-30 10:40] LABS: Basophils # (A) 0.06 X 10*3/uL (0.00-0.10); Basophils % (A) 1.4 %; Eosinophils # (A) 0.13 X 10*3/uL (0.04-0.35); Eosinophils % (A) 2.9 %; HCT 39.9 % (37.2-46.3); HGB 12.7 g/dL (12.0-15.0); Lymphocytes # (A) 1.23 X 10*3/uL (0.90-5.00); Lymphocytes % (A) 27.8 %; MCH 31.4 pg (27.0-32.0); MCHC 31.8 g/dL (32.0-37.0); MCV 98.5 FL (80.0-97.0); Mean Platelet Volume 9.5 FL (9.5-12.2); Monocytes # (A) 0.47 X 10*3/uL (0.20-1.00); Monocytes % (A) 10.6 %; NRBC Per 100 WBC 0 X 10*3/uL (0.00-0.01); Neutrophils # (A) 2.53 X 10*3/uL (1.80-7.70); Neutrophils % (A) 57.1 %; Platelet Count 236 X 10*3/uL (140-440); RBC 4.05 X 10*6/uL (4.10-5.20); RDW 13.6 % (11.5-14.5); WBC 4.43 X 10*3/uL (4.50-10.00)
[2024-10-30 11:17] LABS: Chol/HDL Ratio 2.76 Ratio; LDL Cholesterol,Calculated 82.1 mg/dL (0.0-131.0)
[2024-10-30 11:39] LABS: ALT 19 U/L (8-44); AST 24 U/L (13-35); Albumin 4.4 g/dL (3.8-4.9); Albumin/Globulin Ratio 1.83 Ratio (1.60-3.17); Alkaline Phosphatase 71 U/L (41-126); BUN/Creat Ratio 20.91 Ratio (12.00-20.00); Calcium 9.8 mg/dL (8.7-10.3); Carbon Dioxide 24.8 mmol/L (21.6-31.8); Chloride 106 mmol/L (96-109); Globulin 2.4 g/dL (1.6-3.3); Glucose 91 mg/dL (70-110); Sodium 144 mmol/L (135-145); Total Bilirubin 0.5 mg/dL (0.3-1.2); Total Protein 6.8 g/dL (6.2-8.2)
[2024-10-30 11:45] LABS: Microalbumin Creatinine Ratio <16 mg/g Cr (0-30); Urine Creatinine 76.4 mg/dL (28.0-217.0)
== END | disposition home or self-care (01) ==
LOC: LABWHC1 07:02
PROVIDERS: ATTEND Internal Medicine
DX: Z00.00 Encounter for general adult medical examination without abnormal findings (principal); I12.9 Hypertensive chronic kidney disease with stage 1 through stage 4 chronic kidney disease, or unspecified chronic kidney disease; E55.9 Vitamin D deficiency, unspecified; E78.2 Mixed hyperlipidemia; N18.31 Chronic kidney disease, stage 3a; R73.03 Prediabetes
CPT/HCPCS: 36415; 80053; 80061; 82043; 82306; 82570; 83036; 84443; 85025

== ENCOUNTER → 2024-11-26 | Outpatient (CLI) | payer MEDICARE, OTHER ==
[2024-11-26 15:41] LABS: ALT 23 U/L (8-44); AST 28 U/L (13-35); Albumin 4.4 g/dL (3.8-4.9); Albumin/Globulin Ratio 1.83 Ratio (1.60-3.17); Alkaline Phosphatase 73 U/L (41-126); BUN/Creat Ratio 18.73 Ratio (12.00-20.00); Blood Urea Nitrogen 20.6 mg/dL (9.0-27.0); Calcium 9.5 mg/dL (8.7-10.3); Carbon Dioxide 25.9 mmol/L (21.6-31.8); Chloride 106 mmol/L (96-109); Chol/HDL Ratio 2.62 Ratio; Globulin 2.4 g/dL (1.6-3.3); Glucose 93 mg/dL (70-110); LDL Cholesterol,Calculated 76.3 mg/dL (0.0-131.0); Potassium 3.9 mmol/L (3.5-5.5); Sodium 141 mmol/L (135-145); Total Bilirubin 0.8 mg/dL (0.3-1.2); Total Protein 6.8 g/dL (6.2-8.2); VLDL Calculation 13.88 mg/dL (5.00-40.00)
== END | disposition home or self-care (01) ==
LOC: LABWHC1 08:47
PROVIDERS: ATTEND Internal Medicine Interventional Cardiology
DX: E78.2 Mixed hyperlipidemia (principal)
CPT/HCPCS: 36415; 80053; 80061

== ENCOUNTER → 2024-12-21 | Outpatient (CLI) | payer MEDICARE, OTHER ==
--- NOTE | 2024-12-21 12:19 | US ---
EXAMINATION TYPE: US thyroid st tissue head/neck DATE OF EXAM: 12/21/2024 COMPARISON: US 04/09/25, US 11/15/23 CLINICAL INDICATION: Female, 74 years old with history of E04.1 NONTOXIC SINGLE THYROID NODULE; F/U TECHNIQUE: Grayscale and color Doppler imaging of the thyroid gland. FINDINGS: GLAND SIZE: Right Lobe: 6.8x2.9x2.7 cm Overall Parenchyma: heterogeneous Left Lobe: 6.1x2.9x2.5 cm Overall Parenchyma: heterogeneous Isthmus Thickness: 0.6 cm NODULES RIGHT: # of nodules measured on right: 1 1. 1.2 X 0.7 x 0.9 cm, lower lateral, spongiform, isoechoic nodule, which is wider than tall, with ill-defined margins, without echogenic foci. Prior size: 1.0 x 0.8 x 1.0 cm LEFT: # of nodules measured on left: 2 1. 1.3 X 1.5 x 2.1 cm, lower medial, solid or almost completely solid, isoechoic nodule, which is w ider than tall, with ill-defined margins, without echogenic foci. TR 3. Prior size: 1.6 x 1.2 x 1.2 cm 2. 0.6 X 1.1 x 0.9 cm, upper medial, mixed cystic and solid, isoechoic nodule, which is wider than tall, with ill-defined margins, without echogenic foci. TR 2. Prior size: 1.1 x 0.8 x 1.2 cm ISTHMUS: # of nodules measured in the isthmus: 1 1. 0.7 X 1.0 x 1.2 cm mixed cystic and solid, isoechoic nodule, which is wider than tall, with ill- defined margins, without echogenic foci. TR 2. Prior size: 0.8 x 1.2 x 1.3 cm Bilateral neck scanned, no evidence of lymphadenopathy. IMPRESSION: Redemonstration of heterogenous multinodular enlarged thyroid gland. Thyroid nodules are stable to de creased in size from prior exam. No new definitive nodules identified. Highest TI-RADS level nodule reported: ACR TI-RADS LEVEL: TI-RADS 3 - Mildly Suspicious: Follow if > 1.5 cm, FNA if > 2.5 cm TI-RADS assessment score and recommendation for follow-up based on appropriate scoring and treatment protocols. TR1 Benign No FNA TR2 Not suspicious No FNA TR3: If nodule size is ? 2.5 cm, FNA is recommended. If nodule size is ? 1.5 cm, follow-up imaging at 1, 3, and 5 years is recommended. TR4: If nodule size is ? 1.5 cm, FNA is recommended. If nodule size is ? 1.0 cm, follow-up imaging at 1, 2, 3, and 5 years is recommended. TR5: If nodule size is ? 1.0 cm, FNA is recommended. If nodule size is ? 0.5 cm, annual follow-up for up to 5 years is recommended. TR 1 thyroid nodules have a 0.3 % risk of malignancy. TR 2 thyroid nodules have a 1.5 % risk of malignancy. TR 3 thyroid nodules have a 4.8 % risk of malignancy. TR 4 thyroid nodules have a 9.1 % risk of malignancy. TR 5 thyroid nodules have a 35 % risk of malignancy. [facility], , 12/21/2024 12:16 PM
== END | disposition home or self-care (01) ==
LOC: RADUSWWP 10:32
PROVIDERS: ATTEND Internal Medicine
DX: E04.2 Nontoxic multinodular goiter (principal)
CPT/HCPCS: 76536